=== PATIENT | male | born 1935 | race Caucasian/White ===

== ENCOUNTER → 2016-06-26 | Outpatient (CLI) | payer OTHER ==
[~2016-06-26] MED LIST: ASPCH81 PO; ASPEC325 PO; ASPI325T39 PO; CRS10 PO; DIPH-416 PO; FLUT50SP14 NAE; HYDR-5688 PO; IBUP-1050 PO; SYMIN8045
[2016-06-26 14:21] LABS: BLOOD UREA NITROGEN 21 mg/dl (7-18); BUN/CREATININE RATIO 17.3 (10-20); CALCIUM 8.9 mg/dl (8.5-10.1); CARBON DIOXIDE 23 mmol/L (21-32); CHLORIDE 106 mmol/L (98-107); CHOLESTEROL 159 mg/dl (0-200); GLUCOSE 102 mg/dl (70-99); POTASSIUM 4.3 mmol/L (3.5-5.1); SODIUM 139 mmol/L (136-145)
[2016-06-26 14:26] LABS: CHOLESTEROL/HDL RATIO 2.4; HDL CHOLESTEROL 66 mg/dl; PROSTATE SPECIFIC ANTIGEN < 0.010 ng/ml (0.000-4.000); TRIGLYCERIDES 92 mg/dl (0-150); VERY LOW DENSITY LIPOPROT CALC 18 mg/dl
[2016-06-26 14:31] LABS: ESTIMATED AVERAGE GLUCOSE 120 mg/dl; HA1C FLAG Normal (Normal)
== END | disposition home or self-care (01) ==
LOC: C.LABSPEC 13:34
PROVIDERS: ATTEND Internal Medicine
DX: R73.9 Hyperglycemia, unspecified (principal); E78.5 Hyperlipidemia, unspecified; C61 Malignant neoplasm of prostate

== ENCOUNTER → 2016-07-09 | Outpatient (CLI) | payer OTHER ==
--- NOTE | 2016-07-09 11:06 | DIAGNOSTIC IMAGING REPORT ---
LEFT HIP UNILATERAL 2 VIEWS CLINICAL HISTORY: Left hip pain. COMPARISON STUDY: None. FINDINGS: No fracture or dislocation within the left hip. Mild cartilage space narrowing within the left hip. There are are marginal osteophytes and subchondral sclerosis consistent with degenerative change. The visual pelvic bones are intact. Multiple brachytherapy seeds seen within the prostate gland. IMPRESSION: Mild osteoarthritis within the left hip. No fractures. Electronically signed by: Carson Nam M.D. 07/09/2016 11:04 AM Dictated Date/Time: 07/09/2016 11:01 AM
== END | disposition home or self-care (01) ==
LOC: C.RAD 10:44
PROVIDERS: ATTEND Internal Medicine
DX: M25.552 Pain in left hip (principal)

== ENCOUNTER → 2016-10-02 | Outpatient (CLI) | payer OTHER ==
[~2016-10-02] MED LIST changes: +ASPI81TA28 PO; +FLUT0.15; +ROSU20TA PO
--- NOTE | 2016-10-02 14:52 | DIAGNOSTIC IMAGING REPORT ---
AP PELVIS AND RIGHT HIP 4 VIEWS CLINICAL HISTORY: Persistent right hip pain COMPARISON STUDY: No previous studies for comparison. FINDINGS: Prostate radiation therapy implant seeds are visualized. There are no acute fractures. There are degenerative changes in the lower lumbar spine. There are degenerative changes present within the right hip with prominent subchondral acetabular cysts. IMPRESSION: 1. No acute fractures 2. Degenerative changes within the right hip with prominent subchondral acetabular cysts Electronically signed by: Glenroy Reis M.D. 10/02/2016 2:51 PM Dictated Date/Time: 10/02/2016 2:49 PM
== END | disposition home or self-care (01) ==
LOC: C.RAD 14:17
PROVIDERS: ATTEND Internal Medicine
DX: M25.551 Pain in right hip (principal); M85.68 Other cyst of bone, other site

== ENCOUNTER → 2016-12-26 | Outpatient (CLI) | payer OTHER ==
[~2016-12-26] MED LIST changes: -ASPI81TA28 PO; -FLUT0.15; -ROSU20TA PO
[2016-12-26 13:35] LABS: ALT/SGPT 22 U/L (12-78); AST/SGOT 14 U/L (15-37); BLOOD UREA NITROGEN 22 mg/dl (7-18); BUN/CREATININE RATIO 17.9 (10-20); CALCIUM 8.9 mg/dl (8.5-10.1); CARBON DIOXIDE 24 mmol/L (21-32); CHLORIDE 108 mmol/L (98-107); CHOLESTEROL 155 mg/dl (0-200); GLUCOSE 100 mg/dl (70-99); POTASSIUM 4.3 mmol/L (3.5-5.1); SODIUM 139 mmol/L (136-145); TRIGLYCERIDES 77 mg/dl (0-150); VERY LOW DENSITY LIPOPROT CALC 15 mg/dl
[2016-12-26 13:39] LABS: ALB/GLOB RATIO 1.2 (0.9-2); ALKALINE PHOSPHATASE 54 U/L (45-117); CHOLESTEROL/HDL RATIO 2.6; HDL CHOLESTEROL 60 mg/dl; PROSTATE SPECIFIC ANTIGEN < 0.010 ng/ml (0.000-4.000)
[2016-12-26 13:44] LABS: ESTIMATED AVERAGE GLUCOSE 117 mg/dl; HA1C FLAG Normal (Normal)
== END | disposition home or self-care (01) ==
LOC: C.LABSPEC 12:21
PROVIDERS: ATTEND Internal Medicine
DX: Z00.00 Encounter for general adult medical examination without abnormal findings (principal); R73.9 Hyperglycemia, unspecified; C61 Malignant neoplasm of prostate; E78.5 Hyperlipidemia, unspecified

== ENCOUNTER → 2017-01-06 | Outpatient (CLI) | payer OTHER | END | disposition home or self-care (01) | LOC: C.LABSPEC 15:01 | PROVIDERS: ATTEND Internal Medicine | DX: Z12.11 Encounter for screening for malignant neoplasm of colon (principal) ==

== ENCOUNTER → 2017-01-08 | Outpatient (CLI) | payer OTHER ==
[2017-01-13 18:33] LABS: TESTOSTERONE,TOTAL 258 ng/dL (250-1100)
== END | disposition home or self-care (01) ==
LOC: C.LAB 11:38
PROVIDERS: ATTEND Internal Medicine
DX: N62 Hypertrophy of breast (principal)

== ENCOUNTER → 2017-01-10 | Outpatient (CLI) | payer OTHER ==
[~2017-01-10] MED LIST changes: -DIPH-416 PO; -SYMIN8045
--- NOTE | 2017-01-10 12:46 | MAMMOGRAPHY REPORT ---
MALE BILATERAL DIGITAL DIAGNOSTIC MAMMOGRAM WITH CAD AND TARGETED RIGHT ULTRASOUND: 01/10/2017 CLINICAL HISTORY: The patient reports intermittent pain and swelling in the right nipple region for a pproximately 6 months. The tenderness is noted only on palpation. He denies any left breast symptom s. TECHNIQUE: Current study was also evaluated with a Computer Aided Detection (CAD) system. Bilateral CC and MLO views were obtained. COMPARISON: No prior exams were available for comparison. BREAST COMPOSITION: The tissue of both breasts is predominantly fatty. FINDINGS: A square marker [place] the site of pain and swelling in the right subareolar region. There is flame-shaped fibroglandular tissue seen in bilateral subareolar regions, right breast greater than left, consistent with gynecomastia. No suspicious masses, calcifications, or areas of architectural distortion are noted in either breast. Targeted ultrasound was performed of the area of pain and swelling pointed out by the patient in the right subareolar region. There is mixed echogenicity fibroglandular tissue within the right subareol ar breast, consistent with gynecomastia. No suspicious mass or other suspicious sonographic abnormal ity is evident. IMPRESSION: ACR BI-RADS CATEGORY 2: BENIGN, TARGETED ULTRASOUND ACR BI-RADS CATEGORY 2: BENIGN Benign gynecomastia bilaterally, right breast greater than left. The gynecomastia corresponds with t he area of right breast pain and swelling described by the patient. There is no mammographic or targ eted sonographic evidence of malignancy. Recommend clinical follow-up as to a possible underlying cau se. The patient has been verbally notified of the results. Approximately 10% of breast cancers are not detected with mammography. A negative mammographic report should not delay biopsy if a clinically suggestive mass is present. Cristal John M.D. /:01/10/2017 09:24:01 Coloring Room Worker: Robina West, [facility] letter sent: Normal 1/2 BI-RADS Code: ACR BI-RADS Category 2: Benign Ultrasound BI-RADS: ACR BI-RADS Category 2: Benign
== END | disposition home or self-care (01) ==
LOC: C.MAMM 08:41
PROVIDERS: ATTEND Internal Medicine
DX: N62 Hypertrophy of breast (principal)

== ENCOUNTER 2017-02-15 04:59 | Inpatient (IN) | payer OTHER ==
[2017-01-08 11:45] VITALS: BMI 29.0
--- NOTE | 2017-01-08 12:22 | PAT Medication Instructions ---
Service Date Jan 08, 2017. Current Home Medication List Aspirin (Aspirin Tab-Chewable *), 81 MG PO QPM Aspirin (Aspirin Ec), 325 MG PO PRN Fluticasone Propionate (Flonase Nasal [place]), 1 SPRAYS JACY QPM Ibuprofen (Advil), 200 MG PO PRN Rosuvastatin Calcium (Crestor *), 20 MG PO HS Medication Instructions For Your Scheduled Surgery - Hold the following medications 7 days prior to surgery per surgeon's instructions: Aspirin (Aspirin Ec), 325 MG PO PRN Ibuprofen (Advil), 200 MG PO PRN - Take the following medications the morning of surgery with a sip of water OTHERWISE NOTHING TO EAT OR DRINK AFTER MIDNIGHT: Tylenol (may take if needed up to 4 hours prior to surgery) - Take the following medications as scheduled the night before surgery: Rosuvastatin Calcium (Crestor *), 20 MG PO HS Fluticasone Propionate (Flonase Nasal [place]), 1 SPRAYS JACY QPM Aspirin (Aspirin Tab-Chewable *), 81 MG PO QPM Tylenol If you have any questions please call us at [phone] or [phone] or [phone]
[2017-01-08 12:57] LABS: BASO % 0.4 %; BASO ABS # 0.03 K/uL (0-0.2); COMPLETE YES; EOS % 4.9 %; HEMATOCRIT 39.6 % (42-52); IG% 0.1 %; LYMPH % 22.1 %; LYMPH ABS # 1.49 K/uL (1.2-3.4); MEAN CELL VOLUME 97.1 fL (80-100); MEAN CORPUSCULAR HEMOGLOBIN 33.8 pg (25-34); MEAN CORPUSCULAR HGB CONC 34.8 g/dl (32-36); MEAN PLATELET VOLUME 10.4 fL (7.4-10.4); MONO % 9.2 %; NEUT % 63.3 %; PLATELET COUNT 172 K/uL (130-400); RED BLOOD COUNT 4.08 M/uL (4.7-6.1); WHITE BLOOD COUNT 6.75 K/uL (4.8-10.8)
[2017-01-08 13:01] LABS: URINE APPEARANCE CLEAR (CLEAR); URINE BILIRUBIN NEG (NEG); URINE COLOR YELLOW; URINE NITRITE NEG (NEG); URINE SPECIFIC GRAVITY 1.024 (1.000-1.030); UROBILINOGEN NEG (NEG)
[2017-01-08 13:02] LABS: MANUAL MICROSCOPIC REQUIRED? NO; REVIEW REQ? NO
--- NOTE | 2017-01-08 13:04 | DIAGNOSTIC IMAGING REPORT ---
CHEST 2 VIEWS ROUTINE CLINICAL HISTORY: Right upper chest COMPARISON STUDY: 02/15/2010 FINDINGS: The heart is normal in size. There are prominent coronary phrenic angle fat pads. There is no failure. There is no lobar consolidation. There is minor chronic interstitial thickening. There are no significant pleural effusions. IMPRESSION: No active disease in the chest. Electronically signed by: Glenroy Reis M.D. 01/08/2017 1:03 PM Dictated Date/Time: 01/08/2017 1:02 PM
[2017-01-08 13:10] LABS: PARTIAL THROMBOPLASTIN RATIO 1.1; PROTHROMBIN TIME (PATIENT) 10.4 SECONDS (9.0-12.0)
[2017-01-08 13:11] LABS: BUN/CREATININE RATIO 21.3 (10-20); CALCIUM 9.4 mg/dl (8.5-10.1); CREATININE 1.2 mg/dl (0.60-1.40); POTASSIUM 4.1 mmol/L (3.5-5.1)
--- NOTE | 2017-02-14 17:21 | HISTORY & PHYSICAL EXAMINATION ---
DATE OF ADMISSION: 02/15/2017 HISTORY AND PHYSICAL ADMISSION NOTE CHIEF COMPLAINT: Primary osteoarthritis of the right hip. HISTORY OF PRESENT ILLNESS: Edi is a pleasant 81-year-old male who has been having a 6-month history of increasing right hip pain. His pain has been increasing and now it is to the point where he is unable to sleep at night and do activities he enjoys. X-rays and clinical examination were diagnostic for primary osteoarthritis of the right hip. After failing conservative treatment, he elected to undergo a right total hip arthroplasty. PAST MEDICAL HISTORY: Hyperlipidemia, and prostate cancer. PAST SURGICAL HISTORY: Significant for left total knee arthroplasty by Dr. Ambrose. ALLERGIES: None. MEDICATIONS: Crestor, aspirin, and Flonase. FAMILY HISTORY: Noncontributory. SOCIAL HISTORY: He is , has 1-2 drinks a day. Remains active. REVIEW OF SYSTEMS: He complains of right hip pain. All other pertinent review of systems is negative. PHYSICAL EXAMINATION: GENERAL: He is awake, alert and oriented x3. He is in no apparent distress. He is very pleasant. HEENT: Pupils are equal, round and reactive to light. Extraocular motion intact. Oral mucosa is pink and moist. HEART: Regular rate per radial pulse. LUNGS: [place] symmetrically bilaterally with no audible breath sounds. ABDOMEN: Soft, nontender, nondistended. MUSCULOSKELETAL: On physical examination of the right hip. He walks with a slightly antalgic gait. His leg lengths are equal. He can flex it to about 90 degrees, but significant groin pain and buttock pain with forced internal and external rotation of his hip. His hip is very tight. IMAGING: X-rays of the right hip from the hospital do show advanced osteoarthritis with slight coxa vara. There is complete loss of joint space, osteophyte formation and subchondral sclerosis. IMPRESSION: Primary osteoarthritis of the right hip. PLAN: We will proceed with the right total hip arthroplasty through an anterior approach. Postoperatively, he will be placed on aspirin for DVT prophylaxis and kept in the hospital for postoperative medical management.
[2017-02-15] VITALS (10 sets, daily range): BP systolic 133–173; BP diastolic 72–97; PULSE 58–77; TEMP 36.3–36.8; O2SAT 96–100; Ht 180.3 cm; Wt 95.8 kg
[~2017-02-15] VITALS: Ht 180.3 cm; Wt 95.8 kg
[~2017-02-15 04:59] MED LIST changes: -ASPEC325 PO; -HYDR-5688 PO
[2017-02-15] MEDS ORDERED: ACETAMINOPHEN 500 MG TAB PO SCH (06:00)
[2017-02-15] MEDS ORDERED: ROPIVACAINE 5MG/ML 30 ML 150 MG, BUPIVACAINE/EPINEPHR 0.5% MPF 30 ML, KETOROLAC TROMETH... INFIL SCH ×7 (06:00)
[2017-02-15] MEDS ORDERED: FAMOTIDINE 20 MG TAB PO SCH (06:00)
[2017-02-15] MEDS ORDERED: LACTATED RINGER'S 1000ML 500 ML IV ONE (06:00)
[2017-02-15] MEDS ORDERED: LACTATED RINGER'S 1000ML IV SCH (06:00)
[2017-02-15] MEDS ORDERED: LACTATED RINGER'S 1000ML 1,000 ML IV SCH (06:00)
[2017-02-15] MEDS ORDERED: GABAPENTIN 300 MG CAP PO SCH (06:00)
[2017-02-15] MEDS ORDERED: CEFAZOLIN 2000 MG/60 ML D5W 60 ML IV SCH (06:00)
[2017-02-15] MEDS: TRANEXAMIC ACID INJ 1,000 MG in SODIUM CHLORIDE 0.9% 100ML 100 ML IV SCH ×2 (06:09→10:55)
[2017-02-15] MEDS ORDERED: BUPIVACAINE 0.5 % 5 MG/1 ML PF 10ML VIAL ONE (06:22)
[2017-02-15] MEDS ORDERED: FENTANYL CITRATE INJ 50 MCG/1 ML 2 ML VIAL ONE (06:33)
[2017-02-15] MEDS ORDERED: MIDAZOLAM HCL 1 MG/ML 2ML VIAL ONE (06:33)
[2017-02-15] MEDS ORDERED: BACITRACIN 50000 UNIT VIAL ONE ×2 (06:43→06:53)
[2017-02-15] MEDS ORDERED: ORTHO JOINT ANESTHETIC ONE (06:43)
--- NOTE | 2017-02-15 06:58 | History & Physical Bridge Note ---
H&P Re-Evaluation Bridge Note: I have examined the patient, reviewed the History & Physical and in the interval since the performance of the History & Physical I have noted the following changes of clinical significance: No changes noted
[2017-02-15] MEDS ORDERED: EpHEDrine SULFATE 50MG/5ML SYR ONE (07:36)
[2017-02-15] MEDS ORDERED: LIDOCAINE HCL 2% 2 ML VIAL (20MG/ML) ONE (07:36)
[2017-02-15] MEDS ORDERED: PHENYLEPHRINE 100MCG/ML 5ML SYR ONE (07:36)
[2017-02-15] MEDS ORDERED: PROPOFOL IV EMULSION 10 MG/ML 20 ML VIAL IV ONE ×3 (07:36→09:10)
--- NOTE | 2017-02-15 09:12 | [facility] Post Operative Brief Note ---
Immediate Operative Summary Operative Date Feb 15, 2017. Pre-Operative Diagnosis Right Hip, Degenerative Joint Disease Post-Operative Diagnosis Same as preoperative Procedure(s) Performed Right Anterior Total Hip Arthroplasty, Uncemented Surgeon Dr. Obi Hoyos Executive Business Coach Surgeon(s) Lex Macario PA-C Estimated Blood Loss 250ML Findings as above Specimens A.) Right Femoral Head Complication(s) None Disposition Recovery Room / PACU
[2017-02-15] MEDS ORDERED: BISACODYL 10 MG SUPP PR PRN (09:15)
[2017-02-15] MEDS ORDERED: MoRPHine SULFATE 2 MG/ML CARP IV PRN (09:15)
[2017-02-15] MEDS ORDERED: SILVER SULFADIAZINE 1% CR 50 GM JAR EXT PRN (09:15)
[2017-02-15] MEDS ORDERED: MAGNESIUM HYDROXIDE SUSP 30 ML UDC PO PRN (09:15)
[2017-02-15] MEDS ORDERED: METOCLOPRAMIDE HCL INJ 5 MG/ML 2 ML VIAL IV PRN (09:15)
[2017-02-15] MEDS ORDERED: SOD PHOSPHATE/SOD BIPHOSPHATE ENEMA 132 ML BTL PR PRN (09:15)
[2017-02-15] MEDS ORDERED: ONDANSETRON INJ 2 MG/ML 2 ML VIAL IV PRN (09:15)
--- NOTE | 2017-02-15 09:38 | DIAGNOSTIC IMAGING REPORT ---
INTRAOPERATIVE FLUOROSCOPIC IMAGES OF THE RIGHT HIP CLINICAL HISTORY: Arthroplasty. COMPARISON STUDY: Pelvis and right hip radiograph October 02, 2016. Fluoroscopy time: 51.6 seconds. FINDINGS: 3 intraoperative fluoroscopic images demonstrate expected findings during placement of a total right hip arthroplasty. Acetabular screw is in place. Alignment is anatomic. Brachytherapy seeds within the prostate are incidentally noted. IMPRESSION: Expected intraoperative findings during total right hip arthroplasty. Electronically signed by: Cristi Biggs M.D. 02/15/2017 9:37 AM Dictated Date/Time: 02/15/2017 9:36 AM
--- NOTE | 2017-02-15 09:39 | OPERATIVE REPORT ---
DATE OF OPERATION: 02/15/2017 PREOPERATIVE DIAGNOSIS: Primary osteoarthritis of the right hip. POSTOPERATIVE DIAGNOSIS: Same. PROCEDURE: Right total hip arthroplasty. SURGEON: Dr. Obi Hoyos. COLLAR BASTER JUMPBASTING: Lex Macario PA-C, whose assistance was necessary for positioning of the leg and helping with retraction and closure. ANESTHESIA: Spinal with sedation. COMPLICATIONS: None. CONDITION: Stable to PACU. IMPLANTS USED: I used a [employer]omet Taperloc total hip arthroplasty system with a size 16 standard offset Taperloc stem, a size 54 G7 cup, a G7 E1 neutral liner and a size 40 x -3 ceramic head. INDICATIONS: Edi is a pleasant 81-year-old male who presented to my office with complaints of chronic right hip pain. X-rays and clinical examination were diagnostic for primary osteoarthritis of the right hip. After failing extensive conservative treatment, he elected to undergo a right total hip arthroplasty. DESCRIPTION OF PROCEDURE: On 02/15/2017, he arrived at [facility] for the above procedure. He was seen in the preoperative holding area and the operative extremity was identified and signed. He was given with antibiotic and a spinal anesthetic. He was taken back to the operating room, laid on the table in supine position and given basic sedation. The right leg was brought out to a Purist leg positioner. The right hip was then prepped and draped in sterile fashion. Time-out was done and the patient and operative extremity was properly identified. An anterior approach was used. Dissection was taken down through the tensor fascia and the tensor muscle was retracted laterally and the rectus was retracted medially. The circumflex vessels were ligated. The capsule was then incised for later repair. The femoral head was exposed. The femoral neck was then resected and the head was removed. The acetabulum was then exposed. Sequential reaming under fluoroscopy up to a size 53 reamer was done. A size 54 G7 cup was then impacted into place. I was able to get a good pressfit. A single 25-mm screw was placed. A neutral E1 poly liner was then snapped into place. The proximal femur was then exposed. Sequential broaching up to a size 16 broach was done. A standard femoral head was originally trialed, but the leg length was a little long, so I decided to go with a -3 femoral head. I was happy where the leg length was compared to the preoperative imaging. The hip was then dislocated. The trials were removed. The final size 16 Taperloc standard offset stem was then impacted into place. A ceramic 40-mm head with a -3 neck was then impacted on the trunnion and the hip was reduced. Final x-rays showed anatomic alignment compared to the preoperative films. The hip was then irrigated with 3 liters of normal saline solution with bacitracin. Surrounding soft tissues were injected with 100 mL of an orthopedic pain control cocktail. The capsule was then repaired with #1 Vicryl sutures. A drain was placed. Fascia was repaired with #2 PDS suture. Skin was closed with 2-0 Vicryl, 3-0 V-Loc suture and can. He was then placed in a soft dressing and taken to the postanesthesia care unit in stable condition. He tolerated the procedure well. I attest to the content of the Intraoperative Record and any orders documented therein. Any exception s are noted below.
--- NOTE | 2017-02-15 10:11 | DIAGNOSTIC IMAGING REPORT ---
RIGHT PELVIS/UNILATERAL HIP 1 VIEW HISTORY: 81 years-old Male IN PACU - A/P PELVIS and LATERAL HIP INCLUDING ALL OF IMPLANT Right status post right hip arthroplasty. History of right hip osteoarthritis. COMPARISON: Right hip radiographs 02/15/2017 TECHNIQUE: AP view of the pelvis with crosstable lateral view of the right hip FINDINGS: Brachy therapy seeds within the prostate are seen. Moderate osteoarthritis is seen about the left hip. There are expected postsurgical changes of recent right hip arthroplasty without complication. There is satisfactory alignment. Skin can and surgical drain are in place with expected postsurgical swelling and deep tissue air. Peripheral vascular calcifications are noted. IMPRESSION: 1. Status post total right hip arthroplasty without complication. 2. Moderate left hip osteoarthritis. The above report was generated using voice recognition software. It may contain grammatical, syntax or spelling errors. Electronically signed by: Esdras Capone M.D. 02/15/2017 10:10 AM Dictated Date/Time: 02/15/2017 10:08 AM
[2017-02-15] MEDS: SODIUM CHLORIDE 0.9% 1000ML 1,000 ML IV SCH ×2 (10:56→19:13)
--- NOTE | 2017-02-15 12:33 | Anesthesiology Progress Note ---
Anesthesia Post Op Note Date & Time Feb 15, 2017 at 12:33 Vital Signs Pain Intensity: 0.0 Vital Signs Past 12 Hours Date Time Temp Pulse Resp B/P (MAP) Pulse Ox O2 Delivery O2 Flow Rate FiO2 02/15/17 11:39 36.3 58 18 167/84 (111) 99 Nasal Cannula 2.0 02/15/17 11:13 63 16 133/77 (95) 99 2.0 02/15/17 10:40 36.3 62 20 135/72 (93) 99 Nasal Cannula 2.0 02/15/17 10:40 99 Nasal Cannula 2.0 02/15/17 10:40 99 Nasal Cannula 2.0 02/15/17 10:25 36.3 61 16 130/73 99 Nasal Cannula 2 02/15/17 10:23 58 15 02/15/17 10:23 58 15 99 02/15/17 10:20 112/77 02/15/17 10:18 64 18 02/15/17 10:18 63 18 99 02/15/17 10:15 122/77 02/15/17 10:13 63 13 02/15/17 10:13 62 13 98 02/15/17 10:10 133/75 02/15/17 10:08 58 12 02/15/17 10:08 58 12 99 02/15/17 10:06 133/75 02/15/17 10:03 72 18 100 02/15/17 10:03 72 18 02/15/17 10:02 129/83 02/15/17 09:58 67 16 100 02/15/17 09:58 63 14 99 02/15/17 09:56 107/63 02/15/17 09:53 61 14 100 02/15/17 09:53 62 14 02/15/17 09:51 110/79 02/15/17 09:48 65 15 99 02/15/17 09:48 66 15 02/15/17 09:46 129/69 02/15/17 09:43 63 17 100 02/15/17 09:43 64 17 02/15/17 09:41 119/67 02/15/17 09:38 60 18 02/15/17 09:38 59 18 100 02/15/17 09:36 127/65 02/15/17 09:33 69 24 02/15/17 09:33 68 24 110/65 100 02/15/17 09:33 36.4 16 110/65 100 Mask 10 02/15/17 05:27 36.7 73 18 172/90 98 Room Air Notes Mental Status: alert / awake / arousable, participated in evaluation Pt Amnestic to Procedure: Yes Nausea / Vomiting: adequately controlled Pain: adequately controlled Airway Patency, RR, SpO2: stable & adequate BP & HR: stable & adequate Hydration State: stable & adequate Anesthetic Complications: no major complications apparent
[2017-02-15] MEDS: KETOROLAC TROMETHAMINE 15 MG/ML VIAL IV. SCH ×3 (12:49→23:38)
[2017-02-15] MEDS: CEFAZOLIN IV 2,000 MG in DEXTROSE 5% 50ML 50 ML IV SCH ×2 (15:36→22:25)
[2017-02-15] MEDS: ASPIRIN 325 MG ECTAB PO SCH (20:36)
[2017-02-15] MEDS: DOCUSATE SODIUM 100 MG CAP PO SCH (20:36)
[2017-02-15] MEDS: FLUTICASONE PROPIONATE NA SPR 16 GM BTL NAE SCH (20:36)
[2017-02-15] MEDS: SENNA 8.6 MG TAB PO SCH (20:36)
[2017-02-15] MEDS: ROSUVASTATIN CALCIUM 20 MG TAB PO SCH (20:36)
[2017-02-15] MEDS ORDERED: NURSING VERBAL MED ORDER ONE (23:15)
[2017-02-15] MEDS ORDERED: AMLODIPINE BESYLATE 5 MG TAB PO STA (23:15)
[2017-02-16] VITALS (7 sets, daily range): BP systolic 123–149; BP diastolic 65–77; PULSE 69–90; TEMP 36.6–37.6; O2SAT 97–98
[2017-02-16] MEDS: SODIUM CHLORIDE 0.9% 1000ML 1,000 ML IV SCH (05:43)
[2017-02-16] MEDS: KETOROLAC TROMETHAMINE 15 MG/ML VIAL IV. SCH ×4 (05:44→23:10)
[2017-02-16 06:01] LABS: BASO % 0.1 %; BASO ABS # 0.01 K/uL (0-0.2); COMPLETE YES; EOS % 2.6 %; HEMATOCRIT 31.7 % (42-52); IG% 0.3 %; LYMPH % 16.3 %; LYMPH ABS # 1.27 K/uL (1.2-3.4); MEAN CELL VOLUME 95.8 fL (80-100); MEAN CORPUSCULAR HEMOGLOBIN 33.5 pg (25-34); MONO % 10.2 %; NEUT % 70.5 %; PLATELET COUNT 147 K/uL (130-400); RED BLOOD COUNT 3.31 M/uL (4.7-6.1); WHITE BLOOD COUNT 7.78 K/uL (4.8-10.8)
[2017-02-16 06:37] LABS: BUN/CREATININE RATIO 12.8 (10-20); CALCIUM 8.4 mg/dl (8.5-10.1); POTASSIUM 3.8 mmol/L (3.5-5.1)
[2017-02-16] MEDS: MULTIVITAMIN TAB PO SCH (09:06)
[2017-02-16] MEDS: PANTOprazole SOD 40 MG TAB PO SCH (09:06)
[2017-02-16] MEDS: DOCUSATE SODIUM 100 MG CAP PO SCH ×2 (09:06→20:40)
[2017-02-16] MEDS: ASPIRIN 325 MG ECTAB PO SCH ×2 (09:06→20:41)
--- NOTE | 2017-02-16 09:07 | PROGRESS NOTE ---
DATE: 02/16/2017 DATE: 02/16/2017 CHIEF COMPLAINT: Status post right total hip arthroplasty postop day #1. PROGRESS: Edi was seen and examined at bedside today. Overall, he is doing very well. He has a little soreness in his hip but it is not too bad. He has been urinating a lot so I am going to discontinue his IV fluids. He has no other complaints. PHYSICAL EXAMINATION: RIGHT HIP: The dressing is clean and dry and the drain is to suction. He is neurovascularly intact. His leg lengths are essentially equal. LABORATORY DATA: He has an H&H today of 11.1 and 31.7. His glucose is 93. His vital signs are all stable on room air. He is voiding on his own. X-rays postoperatively of the right hip show the prosthesis to be in anatomic alignment without any evidence of fracture, dislocation or loosening. IMPRESSION: Status post right total hip arthroplasty postop day #1. PLAN: At this point, he is doing very well. He will be seen by physical therapy today for ambulation. He is on aspirin 325 mg twice a day for DVT prophylaxis. Tomorrow morning the nursing staff can change the dressing, pull the drain and will likely discharge him to home.
[2017-02-16] MEDS: HYDROCODONE/ACETAMOPHEN 5/325MG TAB PO PRN (11:07)
[2017-02-16] MEDS: FLUTICASONE PROPIONATE NA SPR 16 GM BTL NAE SCH (20:39)
[2017-02-16] MEDS: ROSUVASTATIN CALCIUM 20 MG TAB PO SCH (20:40)
[2017-02-16] MEDS: SENNA 8.6 MG TAB PO SCH (20:40)
--- NOTE | 2017-02-16 20:43 | Medical Consult ---
Consultation Note Date of Service Feb 16, 2017. Consultation Note 81-year-old male admitted by Dr. Obi Hoyos. He underwent a total right hip arthroplasty. The procedure was well tolerated. Past night his nurse called me about his elevated blood pressure. It was in the 160s to 170s systolic. Patient does not have any history of arterial hypertension. His medical problems include hypercholesterolemia, history of prostate cancer, osteoarthritis. During the night I did give him one dose of Norvasc 5 mg orally. His blood pressure normalized. Reviewing his blood pressure readings his blood pressure has remained normal throughout the day. As noted he does not have any history of arterial hypertension and hasnot required any treatment in the past. At this time I do not see any indication to start him on any antihypertensive medication. Will monitor his blood pressure.
[2017-02-17] MEDS: KETOROLAC TROMETHAMINE 15 MG/ML VIAL IV. SCH (05:39)
[2017-02-17 05:54] VITALS: BP 139/74; PULSE 81; TEMP 37; O2SAT 97
[2017-02-17] MEDS: PANTOprazole SOD 40 MG TAB PO SCH (07:34)
[2017-02-17] MEDS: ASPIRIN 325 MG ECTAB PO SCH (07:34)
[2017-02-17] MEDS: DOCUSATE SODIUM 100 MG CAP PO SCH (07:34)
[2017-02-17] MEDS: MULTIVITAMIN TAB PO SCH (07:34)
[2017-02-17] MEDS: HYDROCODONE/ACETAMOPHEN 5/325MG TAB PO PRN (07:38)
[2017-02-17] MEDS ORDERED: ASPEC325 PO (09:44)
[2017-02-17] MEDS ORDERED: HYDR-5688 PO (09:44)
--- NOTE | 2017-02-17 09:45 | Discharge Instructions ---
Discharge Instructions Date of Service Feb 17, 2017. Admission Reason for Admission: Right Hip Degenerative Joint Disease Discharge Discharge Diagnosis / Problem: Total Hip Discharge Goals Goal(s): Decrease discomfort, Improve function Activity Recommendations Activity Limitations: as noted below . Instructions / Follow-Up Instructions / Follow-Up Activity and Therapy Recommendations: * If you are using [facility] then Physical Therapy will be provided until they feel you are ready to start Outpatient Physical Therapy. If you are not using a Home Health agency then Outpatient Physical Therapy should start about 3-5 days from your day of surgery. Therapy will last about 3-6 weeks * You were shown a series of exercises in the hospital. Do these exercises three times each day including the exercises you were shown in physical therapy. * Get up and walk several times each day.~ For the first four weeks, try not to stand or walk for more than one hour at a time. If you do stand or walk for more than one hour, you will not hurt anything, but your leg will likely swell.~ ~ * As you feel comfortable, you may change from the walker or crutches to a cane and~then to independent walking. Medications: * Narcotic You will likely be sent home from the hospital with a prescription for the narcotic pain medication that worked best throughout your stay. * Aspirin Most patients will be required to take Aspirin 325mg twice a day for 6 weeks after surgery. This is obtained [id number] and a prescription is not necessary. * Other medications may be prescribed for specific circumstances. If you have any questions, please call the office at . * Resume previous home medications unless otherwise instructed TEDs/Elastic Stockings: The white elastic stockings help limit swelling and prevent blood clots from forming in your legs. The more you wear them, the more they work. Wear them for six weeks. Showering: You may shower 5 days from the day of surgery. Let the soapy shower water run over the can. Do not scrub or soak the incision. Things To Watch For: * Drainage from the incision site that occurs more than one week after your surgery. * Increased redness at the incision site. * Fever above 102 degrees Fahrenheit. * Unusual chest pain or shortness of breath. * Call [facility] at with any of the above problems Follow-Up Visit: Follow-up with Dr. Hoyos 2-3 weeks after your day of surgery. An appointment was probably scheduled when you signed-up for surgery in the office. If you have any questions call Office Instructions: More detailed instructions as well as Frequently Asked Questions were provided in a folder by our office when you signed-up for surgery. Please review these instructions when you get home. If you have any further questions or concerns, please feel free to call the office at [phone] Current Hospital Diet Patient's current hospital diet: Regular Diet Discharge Diet Recommended Diet: Regular Diet Procedures Procedures Performed: Right Anterior Total Hip Arthroplasty, Uncemented Pending Studies Studies pending at discharge: no Laboratory Results Hemoglobin A1c Test 12/26/16 08:45 Range/Units Estimated Average Glucose 117 mg/dl Hemoglobin A1c 5.7 H 4.5-5.6 % Lipid Panel Test 12/26/16 08:45 Range/Units Triglycerides Level 77 0-150 mg/dl Cholesterol Level 155 0-200 mg/dl HDL Cholesterol 60 mg/dl LDL Cholesterol Direct 80 mg/dl Cholesterol/HDL Ratio 2.6 LDL Cholesterol, Calculated mg/dl Medical Emergencies . Who to Call and When: Medical Emergencies: If at any time you feel your situation is an emergency, please call 911 immediately. . Non-Emergent Contact Non-Emergency issues call your: Surgeon Call Non-Emergent contact if: wound has increased drainage, wound has increased redness . "Provider Documentation" section prepared by Obi Hoyos. . VTE Core Measure Inpt VTE Proph given/why not?: Other Anticoagulation (Aspirin 325 twice a day for 6 weeks)
[2017-02-17 10:01] VITALS: BP 139/74; PULSE 81; TEMP 37; O2SAT 97
--- NOTE | 2017-02-17 21:48 | PROGRESS NOTE ---
DATE: 02/17/2017 CHIEF COMPLAINT: Status post right total hip arthroplasty postop day #2. PROGRESS: Edi was seen and examined at bedside. Overall, he is doing very well. He has been up and ambulating well with physical therapy. His pain is controlled. He has no complaints. PHYSICAL EXAMINATION: RIGHT HIP: The incision is clean and dry and the drain has been pulled. He is neurovascularly intact. His leg lengths are equal. IMPRESSION: Status post right total hip arthroplasty postop day #2. PLAN: At this point, he is doing very well. His vital signs are stable. He is pretty stable with physical therapy and his pain is controlled. We will discharge him to home later today with [facility].
--- NOTE | 2017-02-17 22:03 | DISCHARGE SUMMARY ---
DISCHARGE DIAGNOSIS: Primary osteoarthritis of the right hip. PROCEDURE: Right total hip arthroplasty on 02/15/[address] Obi Hoyos. DISCHARGE INSTRUCTIONS: 1. Aspirin 325 mg twice a day for 6 weeks. 2. Agate 5/325 one or two every 6 hours as needed for pain. 3. Flonase 1 spray at night. 4. Advil as needed for pain. 5. Crestor 20 mg at night. 6. Daily dry dressing changes. 7. Follow up with Dr. Hoyos in 2 weeks. 8. Call the office of Dr. Hoyos with any questions or concerns. HOSPITAL COURSE: Edi is a pleasant 81-year-old male who presented to my office with chronic right hip pain. X-rays and clinical examination were diagnostic for primary osteoarthritis of the right hip. After failing conservative treatment, he elected to undergo a right total hip arthroplasty. On 02/15/2017, he arrived at [facility] and underwent a right hip replacement without complications. He had a spinal anesthetic. Postoperatively, he was started on aspirin for DVT prophylaxis and discharged to general orthopedic floor. On postoperative day #1, his H&H was stable at 11.1 and 31.7. He was up and ambulating well with physical therapy and his pain was well controlled. On postop day #2, the nurses changed the dressing and pulled the drain, and he continued to work well with physical therapy. He was subsequently discharged to home with [facility] and the above instructions. SRIKANTH
== END 2017-02-17 11:05 | disposition home health service (06) | DRG 470 ==
LOC: C.ACU 04:59 → C.3E 06:30 → ENRESERV 10:08
PROVIDERS: ADMIT Orthopaedic Surgery; ATTEND Orthopaedic Surgery
PROC: 0SR904A Replacement of Right Hip Joint with Ceramic on Polyethylene Synthetic Substitute, Uncemented, Open Approach (ICD-10-PCS; principal; 2017-02-15 07:00)
DX: M16.11 Unilateral primary osteoarthritis, right hip (principal); E78.5 Hyperlipidemia, unspecified; R03.0 Elevated blood-pressure reading, without diagnosis of hypertension; Z85.46 Personal history of malignant neoplasm of prostate; Z72.89 Other problems related to lifestyle; Z79.82 Long term (current) use of aspirin; Z79.899 Other long term (current) drug therapy; Z96.652 Presence of left artificial knee joint

== ENCOUNTER → 2017-04-23 | Outpatient (CLI) | payer OTHER ==
[~2017-04-23] MED LIST changes: -ASPCH81 PO; -ASPI325T39 PO; +ASPI81TA28 PO; -CRS10 PO; +FLUT0.15; -FLUT50SP14 NAE; -IBUP-1050 PO; +ROSU20TA PO
[2017-04-23 13:14] LABS: BASO % 0.3 %; BASO ABS # 0.02 K/uL (0-0.2); COMPLETE YES; EOS % 2.9 %; HEMATOCRIT 38.7 % (42-52); IG% 0.3 %; LYMPH % 23.6 %; LYMPH ABS # 1.54 K/uL (1.2-3.4); MEAN CELL VOLUME 97.7 fL (80-100); MEAN CORPUSCULAR HEMOGLOBIN 33.1 pg (25-34); MEAN CORPUSCULAR HGB CONC 33.9 g/dl (32-36); MEAN PLATELET VOLUME 10.5 fL (7.4-10.4); MONO % 8.3 %; NEUT % 64.6 %; PLATELET COUNT 174 K/uL (130-400); RED BLOOD COUNT 3.96 M/uL (4.7-6.1); WHITE BLOOD COUNT 6.52 K/uL (4.8-10.8)
[2017-04-23 13:21] LABS: PARTIAL THROMBOPLASTIN RATIO 1.1; PROTHROMBIN TIME (PATIENT) 10.2 SECONDS (9.0-12.0)
[2017-04-23 13:28] LABS: URINE APPEARANCE CLEAR (CLEAR); URINE BILIRUBIN NEG (NEG); URINE COLOR YELLOW; URINE NITRITE NEG (NEG); URINE SPECIFIC GRAVITY 1.023 (1.000-1.030); UROBILINOGEN NEG (NEG)
[2017-04-23 13:33] LABS: MANUAL MICROSCOPIC REQUIRED? NO; REVIEW REQ? NO
[2017-04-23 13:39] LABS: BLOOD UREA NITROGEN 22 mg/dl (7-18); BUN/CREATININE RATIO 21.7 (10-20); CALCIUM 8.9 mg/dl (8.5-10.1); CARBON DIOXIDE 25 mmol/L (21-32); CHLORIDE 107 mmol/L (98-107); CREATININE 1.02 mg/dl (0.60-1.40); GLUCOSE 90 mg/dl (70-99); POTASSIUM 4.4 mmol/L (3.5-5.1); SODIUM 139 mmol/L (136-145)
== END | disposition home or self-care (01) ==
LOC: C.LABBC 12:06
PROVIDERS: ATTEND Orthopaedic Surgery
DX: Z01.812 Encounter for preprocedural laboratory examination (principal); M16.12 Unilateral primary osteoarthritis, left hip

== ENCOUNTER 2017-05-17 07:19 | Inpatient (IN) | payer OTHER ==
[2017-04-16 11:21] VITALS: BMI 29.0
--- NOTE | 2017-05-16 09:48 | HISTORY & PHYSICAL EXAMINATION ---
DATE OF ADMISSION: 05/17/2017 CHIEF COMPLAINT: Primary osteoarthritis of the left hip. HISTORY OF PRESENT ILLNESS: Edi is a pleasant 81-year-old male who underwent a right total hip arthroplasty 3 months ago. He has done very well with that. Unfortunately, he is having similar pain in his left hip. He is having difficulty sleeping at night and doing activities he enjoys. X-rays and clinical examination were diagnostic for primary osteoarthritis of the left hip and after failing conservative treatment, he has elected to undergo a left total hip arthroplasty. PAST MEDICAL HISTORY: Significant for hyperlipidemia and prostate cancer. PAST SURGICAL HISTORY: Significant for a left total knee arthroplasty by Dr. Ambrose, a right total hip arthroplasty by Dr. Hoyos in February 2017. ALLERGIES: None. MEDICATIONS: Include Crestor, aspirin and Flonase. FAMILY HISTORY: Noncontributory. SOCIAL HISTORY: He is , has 1-2 drinks a day. Remains active. REVIEW OF SYSTEMS: He complains of left hip pain. All other pertinent review of systems are negative. PHYSICAL EXAMINATION: GENERAL: He is awake, alert and oriented x3. He is in no apparent distress. He is very pleasant. HEENT: Pupils equal, round and reactive to light. Extraocular motion intact. Oral mucosa is pink and moist. HEART: Regular rate per radial pulse. LUNGS: [place] symmetrically bilaterally with no audible breath sounds. ABDOMEN: Soft, nontender, nondistended. MUSCULOSKELETAL: On physical examination of left hip, he walks with a slightly antalgic gait. His leg lengths are essentially equal. He can flex it to about 90 degrees, but significant groin and buttock pain with forced internal and external rotation of his hip. His left hip is tight. IMAGING DATA: X-rays of the left hip do show advanced osteoarthritis. There is complete loss of joint space and osteophyte formation and subchondral sclerosis. IMPRESSION: Primary osteoarthritis of the left hip. PLAN: I will proceed with a left total hip arthroplasty through an anterior approach. Postoperatively, he will be placed on aspirin for DVT prophylaxis and kept in the hospital for postoperative medical management.
[2017-05-17] VITALS (9 sets, daily range): BP systolic 111–162; BP diastolic 54–98; PULSE 63–75; TEMP 36.4–37.1; O2SAT 96–100; Ht 180.3 cm; Wt 95.8 kg
[~2017-05-17] VITALS: Ht 180.3 cm; Wt 95.8 kg
[2017-05-17] MEDS: TRANEXAMIC ACID INJ 1,000 MG in SYRINGE 0 ML IV SCH ×2 (06:30→09:47)
[~2017-05-17 07:19] MED LIST changes: +ACETAMINOPHEN 500 MG TAB PO SCH; +ATROPINE SULFATE 0.1 MG/ML 5ML SYR IV PRN; +BUPIVACAINE 0.5 % 5 MG/1 ML PF 10ML VIAL ONE; +CEFAZOLIN 2000MG IV PUSH 10 ML IV SCH; +EpHEDrine SULFATE INJ 50 MG/ML AMP IV PRN; +FAMOTIDINE 20 MG TAB PO SCH; +GABAPENTIN 300 MG CAP PO SCH; +LACTATED RINGER'S 1000ML 1,000 ML IV SCH; +LACTATED RINGER'S 1000ML 500 ML IV ONE; +LACTATED RINGER'S 1000ML IV SCH; +ONDANSETRON INJ 2 MG/ML 2 ML VIAL IV PRN; +ROPIVACAINE 5MG/ML 30 ML 150 MG, BUPIVACAINE 0.5% MPF INJ 30 ML, EpINEphrine HCL INJ 0.... INFIL SCH
[2017-05-17] MEDS ORDERED: ACET325T96 PO (08:00)
[2017-05-17] MEDS ORDERED: MIDAZOLAM HCL 1 MG/ML 2ML VIAL ONE ×2 (09:28→13:20)
[2017-05-17] MEDS ORDERED: FENTANYL CITRATE INJ 50 MCG/1 ML 2 ML VIAL ONE (09:28)
[2017-05-17] MEDS ORDERED: ORTHO JOINT ANESTHETIC ONE (10:15)
[2017-05-17] MEDS ORDERED: PROPOFOL IV EMULSION 10 MG/ML 20 ML VIAL IV ONE ×2 (10:15→13:41)
[2017-05-17] MEDS ORDERED: BACITRACIN 50000 UNIT VIAL ONE (10:15)
--- NOTE | 2017-05-17 10:18 | History & Physical Bridge Note ---
H&P Re-Evaluation Bridge Note: I have examined the patient, reviewed the History & Physical and in the interval since the performance of the History & Physical I have noted the following changes of clinical significance: with revision wound right hip
--- NOTE | 2017-05-17 12:23 | [facility] Post Operative Brief Note ---
Immediate Operative Summary Operative Date May 17, 2017. Pre-Operative Diagnosis Right Hip Wound; Left Hip Degenerative Joint Disease Post-Operative Diagnosis Same as preop Procedure(s) Performed Right Hip Wound Revision; Left Anterior Total Hip Arthroplasty Uncemented Surgeon Dr. Hoyos Cigar Packer Surgeon(s) Lex Macario PA-C Estimated Blood Loss 200 ml Findings as above Specimens A. Left Femoral Head Complication(s) None Disposition Recovery Room / PACU
[2017-05-17] MEDS ORDERED: ONDANSETRON INJ 2 MG/ML 2 ML VIAL IV PRN (12:30)
[2017-05-17] MEDS ORDERED: ACETAMINOPHEN IV 1,000 MG in EMPTY BAG 0 ML IV SCH (12:30)
[2017-05-17] MEDS ORDERED: METOCLOPRAMIDE HCL INJ 5 MG/ML 2 ML VIAL IV PRN (12:30)
[2017-05-17] MEDS ORDERED: MAGNESIUM HYDROXIDE SUSP 30 ML UDC PO PRN (12:30)
[2017-05-17] MEDS ORDERED: SOD PHOSPHATE/SOD BIPHOSPHATE ENEMA 132 ML BTL PR PRN (12:30)
[2017-05-17] MEDS ORDERED: ACETAMINOPHEN 500 MG TAB PO SCH (12:30)
[2017-05-17] MEDS ORDERED: CEFAZOLIN IV 2,000 MG in DEXTROSE 5% 50ML 50 ML IV SCH (12:30)
[2017-05-17] MEDS ORDERED: HYDROCODONE/ACETAMOPHEN 5/325MG TAB PO PRN (12:30)
[2017-05-17] MEDS ORDERED: BISACODYL 10 MG SUPP PR PRN (12:30)
[2017-05-17] MEDS ORDERED: MoRPHine SULFATE 2 MG/ML CARP IV PRN (12:30)
--- NOTE | 2017-05-17 13:15 | Anesthesiology Progress Note ---
Anesthesia Post Op Note Date & Time May 17, 2017 at 13:15 Vital Signs Pain Intensity: 0 Vital Signs Past 12 Hours Date Time Temp Pulse Resp B/P (MAP) Pulse Ox O2 Delivery O2 Flow Rate FiO2 05/17/17 13:01 118/68 05/17/17 12:59 70 14 05/17/17 12:59 70 14 99 05/17/17 12:56 120/72 05/17/17 12:54 74 18 100 05/17/17 12:54 72 18 05/17/17 12:51 110/79 05/17/17 12:49 76 16 99 05/17/17 12:49 76 16 05/17/17 12:46 156/64 05/17/17 12:45 108/77 05/17/17 12:44 80 20 05/17/17 12:44 36.0 80 16 108/77 99 Oxymask 10 05/17/17 12:44 82 20 100 05/17/17 08:05 36.7 66 18 151/78 97 Room Air Notes Mental Status: alert / awake / arousable, participated in evaluation Pt Amnestic to Procedure: Yes Nausea / Vomiting: adequately controlled Pain: adequately controlled Airway Patency, RR, SpO2: stable & adequate BP & HR: stable & adequate Hydration State: stable & adequate Neuraxial Anesthesia: was administered, sensory block is resolving Anesthetic Complications: no major complications apparent
--- NOTE | 2017-05-17 13:27 | DIAGNOSTIC IMAGING REPORT ---
L PELVIS/UNILATERAL HIP 1 VIEW CLINICAL HISTORY: Degenerative arthritis. Postop study. COMPARISON STUDY: 03/27/2017 FINDINGS: There are postsurgical changes of a total right hip arthroplasty. The findings appear similar to the preceding study. Prostate patient therapy seeds are visualized. There is evidence for a new total left hip arthroplasty. There is no dislocation. The acetabular and femoral components appear well seated. Overlying surgical drains are evident. IMPRESSION: Interval total left hip arthroplasty. No complicating features identified. Electronically signed by: Glenroy Reis M.D. 05/17/2017 1:26 PM Dictated Date/Time: 05/17/2017 1:25 PM
--- NOTE | 2017-05-17 13:48 | DIAGNOSTIC IMAGING REPORT ---
INTRAOPERATIVE LEFT HIP 2 VIEWS CLINICAL HISTORY: Degenerative arthritis. Hip arthroplasty. COMPARISON STUDY: AP pelvis dated 03/27/2017 FINDINGS: 47 seconds of fluoroscopic time was utilized. 2 fluoroscopic spot images are provided for interpretation. Image 1 demonstrates resection of the left femoral head. There is an acetabular cup with a single screw present. Image #2 demonstrates a total left hip arthroplasty. There is no dislocation. IMPRESSION: Intraoperative radiographs during a total left hip arthroplasty. Electronically signed by: Glenroy Reis M.D. 05/17/2017 1:46 PM Dictated Date/Time: 05/17/2017 1:45 PM
--- NOTE | 2017-05-17 14:05 | OPERATIVE REPORT ---
DATE OF OPERATION: 05/17/2017 PREOPERATIVE DIAGNOSIS: Primary osteoarthritis of the left hip, small ulceration proximal incision of the right hip. POSTOPERATIVE DIAGNOSIS: Same. PROCEDURE: Left total hip arthroplasty, revision wound and removal ulceration of the right hip. SURGEON: Dr. Obi Hoyos. STRAW HAT BRIM RAISER OPERATOR: Lex Macario PA-C, whose assistance was necessary for retraction and helping with closure. ANESTHESIA: Spinal. COMPLICATIONS: None. CONDITION: Stable to PACU. IMPLANTS USED: I used a [employer]omet Taperloc total hip arthroplasty system with a size 54 cup, a size 40 E1 E-poly liner, size 15 standard offset Taperloc stem and a 40 mm ceramic head with a +6 neck. INDICATIONS: Edi is a pleasant 81-year-old male who presented to my office with bilateral hip pain. He underwent a right total hip arthroplasty 3 months ago. Unfortunately, he has painful osteoarthritis of his left hip. He has elected to proceed with a left total hip arthroplasty. OPERATION AND FINDINGS: On 05/17/2017 he arrived at [facility] for the above procedure. He was seen in the preoperative holding area and the operative extremity was identified and signed. He was given a preoperative antibiotic and a spinal anesthetic. He was taken back to the operating room, laid on the table in supine position and put under basic sedation. The left hip was brought out to a Purist leg positioner. The left hip was then prepped and draped in sterile fashion. Time-out was done and the patient and operative extremity was properly identified. An anterior approach was used. Dissection was taken down through the fascia and the tensor was retracted laterally and the rectus was retracted medially. The circumflex vessels were ligated. The capsule was then incised and tagged for later repair. The femoral neck was then resected and the head was removed. Time was spent doing a complete circumferential labral release. Sequential reaming up to a size 53 reamer was done. This was done under fluoroscopy to ensure appropriate version. A 54 mm cup was then impacted into place. A single 30 mm screw was placed and a 40 mm E1 poly liner was then snapped into place and the ring lock mechanism was engaged. The proximal femur was then exposed. Sequential broaching up to a size 15 broach was done. A standard offset neck and a standard head were used. The hip was then reduced. I was happy with the overall size of the implants, but he still looked a little bit short. The hip was then dislocated. The final size 15 standard offset Taperloc stem was then impacted into place. A +6 head was trialled and I was much happier with the leg lengths. The final size 40 ceramic head with a +6 neck was then impacted into place. The hip was reduced. Final fluoroscopic images showed anatomic reduction and placement of the hip. The wound was then irrigated with 3 liters of normal saline solution with bacitracin. Surrounding soft tissues were injected with 100 mL orthopedic pain control cocktail. The capsule was then repaired with #1 Vicryl suture and drain was placed. Fascia was closed with #1 PDS. Skin was closed with 2-0 Vicryl, 3-0 V-Loc suture, can and a Prevena VAC dressing. He tolerated the procedure well. After the procedure a small revision was done of a superior aspect of the wound on his right thigh. There was a 1 cm area of ulceration of the proximal aspect of his incision on the right side that was not healing. I used a Betadine prep around the area. Under sterile technique, I ellipsed the ulcerated area and placed two 3-0 nylon sutures to close it up. A simple Tegaderm dressing was placed. He was then taken to the postanesthesia care unit in stable condition. He tolerated the procedure well. I attest to the content of the Intraoperative Record and any orders documented therein. Any exception s are noted below.
[2017-05-17] MEDS: SODIUM CHLORIDE 0.9% 1000ML 1,000 ML IV SCH (16:17)
[2017-05-17] MEDS: KETOROLAC TROMETHAMINE 15 MG/ML VIAL IV. SCH ×2 (16:17→21:49)
--- NOTE | 2017-05-17 16:53 | Discharge Instructions ---
Discharge Instructions Date of Service May 17, 2017. Admission Reason for Admission: Left Hip Degenerative Joint Disease Discharge Discharge Diagnosis / Problem: Left Total Hip Discharge Goals Goal(s): Decrease discomfort, Improve function Activity Recommendations Activity Limitations: as noted below . Instructions / Follow-Up Instructions / Follow-Up Activity and Therapy Recommendations: * If you are using [facility] then Physical Therapy will be provided until they feel you are ready to start Outpatient Physical Therapy. If you are not using a Home Health agency then Outpatient Physical Therapy should start about 3-5 days from your day of surgery. Therapy will last about 3-6 weeks * You were shown a series of exercises in the hospital. Do these exercises three times each day including the exercises you were shown in physical therapy. * Get up and walk several times each day.~ For the first four weeks, try not to stand or walk for more than one hour at a time. If you do stand or walk for more than one hour, you will not hurt anything, but your leg will likely swell.~ ~ * As you feel comfortable, you may change from the walker or crutches to a cane and~then to independent walking. Medications: * Narcotic You will likely be sent home from the hospital with a prescription for the narcotic pain medication that worked best throughout your stay. * Aspirin Most patients will be required to take Aspirin 325mg twice a day for 6 weeks after surgery. This is obtained [id number] and a prescription is not necessary. * Other medications may be prescribed for specific circumstances. If you have any questions, please call the office at . * Resume previous home medications unless otherwise instructed TEDs/Elastic Stockings: The white elastic stockings help limit swelling and prevent blood clots from forming in your legs. The more you wear them, the more they work. Wear them for six weeks. Dressing Care: Take the VAC dressing off if it is still on at 10 days (hopefully it will last 7 -10 days). You may shower after the VAC dressing is off. Let soapy water run over the can and pat it dry. Things To Watch For: * Drainage from the incision site that occurs more than one week after your surgery. * Increased redness at the incision site. * Fever above 102 degrees Fahrenheit. * Unusual chest pain or shortness of breath. * Call [facility] at with any of the above problems Follow-Up Visit: Follow-up with Dr. Hoyos 2-3 weeks after your day of surgery. An appointment was probably scheduled when you signed-up for surgery in the office. If you have any questions call Office Instructions: More detailed instructions as well as Frequently Asked Questions were provided in a folder by our office when you signed-up for surgery. Please review these instructions when you get home. If you have any further questions or concerns, please feel free to call the office at [phone] Current Hospital Diet Patient's current hospital diet: Regular Diet Discharge Diet Recommended Diet: Regular Diet Procedures Procedures Performed: Right Hip Wound Revision; Left Anterior Total Hip Arthroplasty Uncemented Pending Studies Studies pending at discharge: no Medical Emergencies . Who to Call and When: Medical Emergencies: If at any time you feel your situation is an emergency, please call 911 immediately. . Non-Emergent Contact Non-Emergency issues call your: Surgeon Call Non-Emergent contact if: wound has increased drainage, wound has increased redness . "Provider Documentation" section prepared by Obi Hoyos. . VTE Core Measure Inpt VTE Proph given/why not?: Other Anticoagulation (Aspirin 325 twice a day for 6 weeks)
[2017-05-17] MEDS: CEFAZOLIN IV 2,000 MG in SYRINGE 0 ML IV SCH (18:20)
[2017-05-17] MEDS: FLUTICASONE PROPIONATE NA SPR 16 GM BTL SCH (21:00)
[2017-05-17] MEDS: ASPIRIN 325 MG ECTAB PO SCH (21:49)
[2017-05-17] MEDS: DOCUSATE SODIUM 100 MG CAP PO SCH (21:49)
[2017-05-17] MEDS: SENNA 8.6 MG TAB PO SCH (21:49)
[2017-05-17] MEDS: ROSUVASTATIN CALCIUM 20 MG TAB PO SCH (21:49)
[2017-05-18] MEDS: SODIUM CHLORIDE 0.9% 1000ML 1,000 ML IV SCH ×2 (02:04→09:49)
[2017-05-18] MEDS: CEFAZOLIN IV 2,000 MG in SYRINGE 0 ML IV SCH (02:04)
[2017-05-18 03:21] VITALS: BP 153/77; PULSE 84; TEMP 36.7; O2SAT 97
[2017-05-18] MEDS: KETOROLAC TROMETHAMINE 15 MG/ML VIAL IV. SCH ×4 (03:31→21:48)
[2017-05-18 06:06] LABS: BASO % 0.1 %; BASO ABS # 0.01 K/uL (0-0.2); COMPLETE YES; EOS % 1.2 %; IG% 0.2 %; LYMPH % 12.5 %; LYMPH ABS # 1.03 K/uL (1.2-3.4); MEAN CELL VOLUME 97.8 fL (80-100); MEAN CORPUSCULAR HGB CONC 33.7 g/dl (32-36); MEAN PLATELET VOLUME 10.9 fL (7.4-10.4); MONO % 11.6 %; NEUT % 74.4 %; PLATELET COUNT 128 K/uL (130-400); RED BLOOD COUNT 2.76 M/uL (4.7-6.1); WHITE BLOOD COUNT 8.21 K/uL (4.8-10.8)
[2017-05-18 06:37] LABS: BUN/CREATININE RATIO 20.1 (10-20); CALCIUM 7.7 mg/dl (8.5-10.1); CREATININE 1.11 mg/dl (0.60-1.40); POTASSIUM 4.1 mmol/L (3.5-5.1)
--- NOTE | 2017-05-18 06:58 | PROGRESS NOTE ---
DATE: 05/18/2017 CHIEF COMPLAINT: Status post left total hip arthroplasty postop day #1. PROGRESS: Edi was seen and examined at bedside today. Overall, he is doing extremely well. He was up and ambulating around the hallways already last night. He was able to get some sleep last night. His pain is controlled. He has no complaints. PHYSICAL EXAMINATION: LEFT HIP: The Prevena VAC dressing is to suction and the drain is to suction. He has active dorsiflexion and plantarflexion of his left ankle and his quad sensation is intact. LABORATORY DATA: He has an H&H today of 9.1 and 27.0. his PRP is still pending. His vital signs are stable on room air. He is voiding on his own and his drain output has been 275. X-rays of the left hip postoperatively show the prosthesis to be in anatomic alignment without any evidence of fracture, dislocation or loosening. IMPRESSION: Status post left total hip arthroplasty postop day #1. PLAN: At this point, he is doing very well. He is on aspirin 325 mg twice a day for DVT prophylaxis. He will be seen by physical therapy today. Tomorrow morning, the nursing staff can pull the drain and will likely discharge him to home.
[2017-05-18 07:33] VITALS: BP 149/75; PULSE 75; TEMP 37; O2SAT 97
[2017-05-18] MEDS: ASPIRIN 325 MG ECTAB PO SCH ×2 (08:19→20:41)
[2017-05-18] MEDS: MULTIVITAMIN TAB PO SCH (08:20)
[2017-05-18] MEDS: DOCUSATE SODIUM 100 MG CAP PO SCH ×2 (08:20→20:41)
[2017-05-18] MEDS: PANTOprazole SOD 40 MG TAB PO SCH (09:50)
[2017-05-18 15:22] VITALS: BP 108/56; PULSE 74; TEMP 37.3; O2SAT 98
[2017-05-18] MEDS: ROSUVASTATIN CALCIUM 20 MG TAB PO SCH (20:41)
[2017-05-18] MEDS: FLUTICASONE PROPIONATE NA SPR 16 GM BTL SCH (20:41)
[2017-05-18] MEDS: SENNA 8.6 MG TAB PO SCH (20:41)
[2017-05-19 00:06] VITALS: BP 118/59; PULSE 84; TEMP 36.8; O2SAT 95
[2017-05-19] MEDS: KETOROLAC TROMETHAMINE 15 MG/ML VIAL IV. SCH ×2 (04:07→09:44)
[2017-05-19 07:40] VITALS: BP 117/69; PULSE 76; TEMP 36.9; O2SAT 99
[2017-05-19] MEDS: DOCUSATE SODIUM 100 MG CAP PO SCH (08:22)
[2017-05-19] MEDS: ASPIRIN 325 MG ECTAB PO SCH (08:22)
[2017-05-19] MEDS: PANTOprazole SOD 40 MG TAB PO SCH (08:22)
[2017-05-19] MEDS: MULTIVITAMIN TAB PO SCH (08:22)
[2017-05-19] MEDS ORDERED: ASPEC325 PO (09:16)
--- NOTE | 2017-05-19 09:41 | PROGRESS NOTE ---
DATE: 05/19/2017 CHIEF COMPLAINT: Status post left total hip arthroplasty postop day #2. PROGRESS: Edi was seen and examined at bedside today. Overall, he is doing very well. He has a little more soreness in his hip today, but he worked well yesterday with physical therapy. He has no other complaints. PHYSICAL EXAMINATION: LEFT HIP: The Prevena VAC dressing is to suction. His leg lengths are equal. He has active dorsiflexion and plantarflexion of his left ankle and sensation is intact. IMPRESSION: Status post left total hip arthroplasty postop day #2. PLAN: At this point, he is doing well. The nursing staff pulled the drain early this morning. He will be seen by physical therapy again today. He can be discharged to home later this morning.
--- NOTE | 2017-05-19 09:50 | DISCHARGE SUMMARY ---
DISCHARGE DIAGNOSIS: Primary osteoarthritis of the left hip. PROCEDURE: Left total hip arthroplasty on 05/17/[address] Obi Hoyos. DISCHARGE INSTRUCTIONS: 1. Aspirin 325 mg twice a day for 6 weeks. 2. Hydrocodone as needed for pain. 3. Tylenol 650 mg as needed. 4. Flonase 50 mcg spray daily. 5. Crestor 20 mg at night. 6. OSCAR hose stockings for 6 weeks. 7. Follow up with Dr. Hoyos in 2 weeks. 8. Call the office of Dr. Hoyos with any questions or concerns. 9. Leave the Prevena VAC dressing on for 7-10 days. HOSPITAL COURSE: Edi is an 81-year-old male who I did a right total hip arthroplasty about 3 months ago. He was having complaints of left hip pain. X-rays and clinical examination were diagnostic for primary osteoarthritis of the left hip. After failing conservative treatment, he elected to undergo a left total hip arthroplasty. On 05/17/2017, he arrived at [facility] and underwent a left hip replacement without complication. He had a spinal anesthetic. Postoperatively, Prevena VAC dressing was placed prophylactically. He was started on aspirin 325 mg twice a day and discharged to general orthopedic floor. His hospital course was uneventful. On postop day #1, his H&H was stable at 9.1 and 27.0. He was up and ambulating well with physical therapy and he had very little pain. On postop day #2, the drain was pulled. He continued to do well with therapy and he was subsequently discharged to home with the above instructions.
[2017-05-19 10:28] VITALS: BP 117/69; PULSE 76; TEMP 36.9; O2SAT 99
== END 2017-05-19 11:29 | disposition home health service (06) | DRG 470 ==
LOC: C.ACU 07:19 → C.3E 09:30 → ENRESERV 13:26
PROVIDERS: ADMIT Orthopaedic Surgery; ATTEND Orthopaedic Surgery
PROC: 0HBHXZZ Excision of Right Upper Leg Skin, External Approach (ICD-10-PCS; principal; 2017-05-17 10:05)
PROC: 0SRB04A Replacement of Left Hip Joint with Ceramic on Polyethylene Synthetic Substitute, Uncemented, Open Approach (ICD-10-PCS; principal; 2017-05-17 10:05)
DX: M16.12 Unilateral primary osteoarthritis, left hip (principal); E78.5 Hyperlipidemia, unspecified; Z96.641 Presence of right artificial hip joint; Z96.652 Presence of left artificial knee joint; Z79.82 Long term (current) use of aspirin; Z79.899 Other long term (current) drug therapy

== ENCOUNTER → 2017-07-01 | Outpatient (CLI) | payer OTHER ==
[~2017-07-01] MED LIST changes: +ACET325T96 PO; -ACETAMINOPHEN 500 MG TAB PO SCH; +ASPEC325 PO; -ASPI81TA28 PO; -ATROPINE SULFATE 0.1 MG/ML 5ML SYR IV PRN; -BUPIVACAINE 0.5 % 5 MG/1 ML PF 10ML VIAL ONE; -CEFAZOLIN 2000MG IV PUSH 10 ML IV SCH; -EpHEDrine SULFATE INJ 50 MG/ML AMP IV PRN; -FAMOTIDINE 20 MG TAB PO SCH; -GABAPENTIN 300 MG CAP PO SCH; -LACTATED RINGER'S 1000ML 1,000 ML IV SCH; -LACTATED RINGER'S 1000ML 500 ML IV ONE; -LACTATED RINGER'S 1000ML IV SCH; -ONDANSETRON INJ 2 MG/ML 2 ML VIAL IV PRN; -ROPIVACAINE 5MG/ML 30 ML 150 MG, BUPIVACAINE 0.5% MPF INJ 30 ML, EpINEphrine HCL INJ 0.... INFIL SCH
[2017-07-01 13:18] LABS: HEMOGLOBIN A1C 5.3 % (4.5-5.6)
[2017-07-01 13:37] LABS: BLOOD UREA NITROGEN 16 mg/dl (7-18); CALCIUM 8.9 mg/dl (8.5-10.1); CARBON DIOXIDE 24 mmol/L (21-32); CREATININE 0.98 mg/dl (0.60-1.40); GLUCOSE 100 mg/dl (70-99); POTASSIUM 4.1 mmol/L (3.5-5.1); SODIUM 134 mmol/L (136-145)
[2017-07-01 13:40] LABS: CHOLESTEROL 174 mg/dl (0-200); LDL CHOLESTEROL (DIRECT) 102 mg/dl
== END | disposition home or self-care (01) ==
LOC: C.LABSPEC 12:34
PROVIDERS: ATTEND Internal Medicine
DX: R73.9 Hyperglycemia, unspecified (principal); E78.5 Hyperlipidemia, unspecified; Z85.46 Personal history of malignant neoplasm of prostate

== ENCOUNTER → 2017-09-11 | Outpatient (CLI) | payer OTHER ==
[~2017-09-11] MED LIST changes: +ACET-1693 PO; -ACET325T96 PO
[2017-09-11 14:07] LABS: BASO % 0.5 %; BASO ABS # 0.03 K/uL (0-0.2); EOS % 3.1 %; EOS ABS # 0.17 K/uL (0-0.5); HEMATOCRIT 40.6 % (42-52); HEMOGLOBIN 14.1 g/dL (14.0-18.0); IG# 0.01 K/uL (0.00-0.02); LYMPH % 24.9 %; LYMPH ABS # 1.36 K/uL (1.2-3.4); MEAN CELL VOLUME 95.5 fL (80-100); MEAN CORPUSCULAR HEMOGLOBIN 33.2 pg (25-34); MEAN CORPUSCULAR HGB CONC 34.7 g/dl (32-36); MEAN PLATELET VOLUME 10.7 fL (7.4-10.4); MONO % 10.8 %; MONO ABS # 0.59 K/uL (0.11-0.59); NEUT % 60.5 %; NEUT ABS # 3.31 K/uL (1.4-6.5); PLATELET COUNT 153 K/uL (130-400); RED CELL DISTRIBUTION WIDTH CV 15.8 % (11.5-14.5); WHITE BLOOD COUNT 5.47 K/uL (4.8-10.8)
[2017-09-11 14:38] LABS: ALBUMIN 3.8 gm/dl (3.4-5.0); ALT/SGPT 29 U/L (12-78); AST/SGOT 18 U/L (15-37); BLOOD UREA NITROGEN 19 mg/dl (7-18); CALCIUM 8.7 mg/dl (8.5-10.1); CARBON DIOXIDE 23 mmol/L (21-32); CREATININE 1.13 mg/dl (0.60-1.40); GLUCOSE 123 mg/dl (70-99); POTASSIUM 4.1 mmol/L (3.5-5.1); SODIUM 137 mmol/L (136-145)
[2017-09-11 14:40] LABS: ALKALINE PHOSPHATASE 63 U/L (45-117)
== END | disposition home or self-care (01) ==
LOC: C.LABSPEC 12:50
PROVIDERS: ATTEND Internal Medicine
DX: L29.9 Pruritus, unspecified (principal)

== ENCOUNTER → 2018-01-01 | Outpatient (CLI) | payer OTHER ==
[2018-01-01 14:33] LABS: ALBUMIN 3.8 gm/dl (3.4-5.0); ALKALINE PHOSPHATASE 53 U/L (45-117); ALT/SGPT 25 U/L (12-78); AST/SGOT 21 U/L (15-37); BLOOD UREA NITROGEN 18 mg/dl (7-18); CALCIUM 8.9 mg/dl (8.5-10.1); CARBON DIOXIDE 24 mmol/L (21-32); CHOLESTEROL 147 mg/dl (0-200); CREATININE 1.17 mg/dl (0.60-1.40); GLUCOSE 96 mg/dl (70-99); LDL CHOLESTEROL (DIRECT) 74 mg/dl; POTASSIUM 4.2 mmol/L (3.5-5.1); SODIUM 136 mmol/L (136-145); TOTAL PROTEIN 6.7 gm/dl (6.4-8.2)
[2018-01-01 14:47] LABS: HEMOGLOBIN A1C 5.7 % (4.5-5.6)
== END | disposition home or self-care (01) ==
LOC: C.LABSPEC 13:41
PROVIDERS: ATTEND Internal Medicine
DX: Z00.00 Encounter for general adult medical examination without abnormal findings (principal); E78.5 Hyperlipidemia, unspecified; R73.9 Hyperglycemia, unspecified; Z85.46 Personal history of malignant neoplasm of prostate

== ENCOUNTER → 2018-01-13 | Outpatient (CLI) | payer OTHER ==
[2018-01-13 18:25] LABS: FECAL OCCULT BLOOD #1 NEGATIVE (NEGATIVE); FECAL OCCULT BLOOD #2 NEGATIVE (NEGATIVE); FECAL OCCULT BLOOD #3 NEGATIVE (NEGATIVE)
== END | disposition home or self-care (01) ==
LOC: C.LABSPEC 17:51
PROVIDERS: ATTEND Internal Medicine
DX: Z12.11 Encounter for screening for malignant neoplasm of colon (principal)

== ENCOUNTER 2021-10-31 08:39 | Inpatient (IN) ==
--- NOTE | 2021-10-26 16:14 | PAT Medication Instructions ---
Medication Instructions Date of Service October 26, 2021 Home Medications fluticasone propionate 50 mcg/actuation nasal spray,suspension (Flonase Allergy Relief) 1 spray INTRANASAL HS rosuvastatin 20 mg tablet 20 mg PO HS amlodipine 2.5 mg tablet 2.5 mg PO HS aspirin 81 mg tablet,delayed release (Adult Aspirin Regimen) 81 mg PO HS clopidogrel 75 mg tablet 75 mg PO HS ASK your prescriber and surgeon aspirin 81 mg tablet,delayed release (Adult Aspirin Regimen) 81 mg PO HS clopidogrel 75 mg tablet 75 mg PO HS Take morning of surgery With a small sip of water, OTHERWISE NOTHING TO EAT OR DRINK AFTER MIDNIGHT: Take evening before surgery fluticasone propionate 50 mcg/actuation nasal spray,suspension (Flonase Allergy Relief) 1 spray INTRANASAL HS rosuvastatin 20 mg tablet 20 mg PO HS amlodipine 2.5 mg tablet 2.5 mg PO HS Other Notes If you have any questions please call us at [phone] or [phone] or [phone] or [phone]
--- NOTE | 2021-10-27 14:34 | Anesthesiology Consultation ---
Date of Service October 27, 2021 Assessment & Plan (1) Encounter for pre-operative examination: - COVID screening: Per assessment on 10/27: No known COVID-19 positive contacts or current COVID-19 related symptoms. Travel screen negative. Surgeon arranging preop COVID testing. Patient having preop Covid test at [facility] (10/27). Awaiting results. - Cardiology office visit (10/09/21): "amaurosis fugax:The patient appears to have had an embolic event involving the right eye. His symptoms have nearly resolved completely. He did not report other neurologic symptoms. He has no history of palpitations. We will evaluate his carotid arteries and perform an echocardiogram. In the absence of any significant abnormalities consideration could be given to long-term rhythm monitoring. I asked him to start taking a baby aspirin again.. Hypertension: Patient seems to have elevated blood pressure. He was prescribed a very small dose ( 1.25 mg) of amlodipine. Unclear why such a small dose was chosen. I asked him to take a full pill which would be 2.5 mg daily. We will need to monitor his blood pressure over time and increase the dose as necessary." - Cardiology office visit (10/24/21): "Patient seen today after alerted to severe, ulcerated appearing right ICA stenosis in the setting of recent symptoms. Also with contralateral left ICA disease. Discussed findings and options with patient. No recent symptoms since initial event. Will start on clopidogrel in addition to baby aspirin. Contacted patient's primary care physician Dr. Plummer who will see patient tomorrow. Also referring event executive Dr. Ramos. Also discussed with vascular surgery, Dr. Pace who can see patient on ." - Cardiology addendum (10/29/21): Cardio was made aware that CEA was scheduled prior to patient having previously ordered Echo performed. Per cardio note (): "The patient does not require an echocardiogram prior to his planned CEA. This evaluation was planned to assess a possible cardiac source of his embolic event, but the carotid findings are the most likely source and will need to be addressed regardless of findings on his echocardiogram" > Cardio was able to obtain Echo prior to surgery- done 10/30/21 and unremarkable* - ASA/plavix instructions per surgeon/prescriber (per pt, was advised to continue perioperatively) Chart Review Chart Review: Acceptable Risk for Surgery and Patient seen in Pre Admission Testing Teaching & Discussion Pre-Anesthesia Teaching/Discussion Notes: Instructed NPO after midnight before surgery,except medications with 15 cc of water. Medication instructions provided according to the PAT guidelines. History Surgery Operation Date: 10/31/21 10:25 Proposed Procedures p Right Carotid Endarterectomy - Bayron Pace MD Height/Weight Height: 5 ft 10.5 in Weight: 99 kg Allergies Allergy/AdvReac Type Severity Reaction Status Date / Time atorvastatin Allergy Intermediate Hives Verified 10/27/21 08:46 oxycodone AdvReac Mild Nausea Verified 10/27/21 08:46 Medications Home Medications Medication Instructions Recorded Confirmed Last Taken fluticasone propionate 50 1 spray INTRANASAL HS 10/05/21 10/26/21 Unknown mcg/actuation nasal spray,suspension (Flonase Allergy Relief) rosuvastatin 20 mg tablet 20 mg PO HS 10/05/21 10/26/21 Unknown amlodipine 2.5 mg tablet 2.5 mg PO HS tab 10/09/21 10/26/21 Unknown aspirin 81 mg tablet,delayed 81 mg PO HS 10/26/21 10/26/21 Unknown release (Adult Aspirin Regimen) clopidogrel 75 mg tablet 75 mg PO HS 10/26/21 10/26/21 Unknown Past Medical History Medical History Carotid stenosis > 70% B/L ICA stenosis (DENISE with irregular, crater-like plaque formation suggestive of ulcerative plaque) per 10/24/21 carotid doppler Hyperlipidemia Hypertension Metatarsalgia of right foot 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 Perez's note: Hx of recent transient monocular visual loss, pt denies any other stroke-like symptoms Wears hearing aid Exercise / Class Metabolic Activity II 4-5 Yardwork/Stairs/Walk up hill (one FS (no CP, no SOB)) Past Family History Family History Other No family history of adverse response to anesthesia Past Surgical History Surgical History History of bilateral cataract extraction History of foot surgery x3 (right foot) History of nasal polypectomy History of prostate biopsy Malignant History of prostate surgery Status post prostate seed implant History of right hip replacement Left anterior VALENTÍN (05/17/17): SAB at L3/4 (x1 attempt) at [facility]. No issues noted per post-op anesthesia progress note. History of tooth extraction History of total left hip replacement History of total left knee replacement (TKR) Past Anesthesia History No Hx of Anesthesia Complications and No Family Hx of Anesthesia Complications History of PONV No Hx of PONV and No Hx of Motion Sickness Social History Smoking Status: Light tobacco smoker tobacco type: cigars Smoking cigarettes per day: smokes 1 cigar every day (advised policy) Do You Dip or Chew Tobacco: No Smoking End Date: quit 1972 after smoking 1 pack a day for 20yrs Hx Alcohol Use: Yes ("2 cans a beer a month") Alcohol type: beer alcohol intake frequency: a few times a month Hx Substance Use: No substance use type: does not use Review of Systems Patient denies chest pain, shortness of breath, dyspnea on exertion, fever, chills, cough, wheezing, palpitations. Physical Exam Vital Signs VITALS BP 168/70 P 72 TEMP 98.4 SP02 96%RA RESP 16 PHYSICAL Full cervical extension range of motion. Full TMJ range of motion. TMD 4 finger breaths Mallampati Score 3 Dentition: several "false teeth bolted in" Lungs: clear throughout to auscultation Cardiac: regular rate and rhythm, no murmurs noted Spine: normal Carotid arteries: negative bruit Extremities: no edema Lab Results Anesthesia Preop Results Results Anesthesia Widget: WBC 6.28 K/uL (4.8-10.8) 10/27/21 Hgb 14.3 g/dL (14.0-18.0) 10/27/21 Hct 41.0 % (42-52) L 10/27/21 Plt 167 K/uL (130-400) 10/27/21 Na 136 mmol/L (136-145) 10/27/21 K 4.5 mmol/L (3.5-5.1) 10/27/21 Cl 103 mmol/L (98-107) 10/27/21 CO2 28 mmol/L (21-32) 10/27/21 BUN 19 mg/dl (6-23) 10/27/21 Creat 1.36 mg/dl (0.6-1.4) 10/27/21 Glucose Level 94 mg/dl (70-99(Fasting)) 10/27/21 PT 10.6 Seconds (9.0-12.0) 10/27/21 PTT 27.5 Seconds (21.0-31.0) 10/27/21 INR 1.0 (0.9-1.1) 10/27/21 Blood Type A Positive 10/27/21 Antibody Screen NEGATIVE 10/27/21 Testing Electrocardiogram Date: 10/27/21 NSR at 66bpm. Chest X-Ray Date: 10/27/21 FINDINGS: Frontal and lateral radiographs of the chest demonstrate the cardiomediastinal silhouette to be within normal limits. There is hyperinflation of the lungs with attenuation of the pulmonary vasculature peripherally characteristic of underlying chronic obstructive pulmonary disease. The lungs are clear of alveolar opacities. There is no evidence for effusion bilaterally. There is no evidence for vascular congestion. There is no acute osseous pathology. IMPRESSION: No acute cardiopulmonary disease. Evidence for underlying COPD. Echocardiogram Date: 10/30/21 EF 60-65%. No RWMA. Mild cLVH. Mild LAD. Borderline aortic root dilatation. Grade I DD. No significant valvular disease. Compared to study 10/06/12, no significant change per report. Other Testing Carotid doppler (10/24/21) > 70% b/l ICA stenosis. DENISE with irregular, crater-like plaque formation suggestive of ulcerative plaque. Antegrade flow in both vertebral arteries. CTA Neck (10/30/21) There is a 5 mm left thyroid nodule present. The lung apices appear within normal limits. Approximately 70-80% stenosis of the origin of the right internal carotid artery by NASCET criteria. Less than 50% stenosis of the origin of the left internal carotid artery.
--- NOTE | 2021-10-31 07:51 | History & Physical Report ---
Date of Service October 31, 2021 History of Present Illness Primary Care Provider: Raymundo Plummer MD Name: ROLAND WEST Patient Number: [id number] : 1935 Date of Service: 10/26/2021 Chief Complaint: _New patient consultation for carotid stenosis HPI: _Mr. West is an elderly male who presents to Dr. Pace's vascular surgery clinic today as a new patient in consultation for bilateral ICA stenosis and right sided amaurosis symptoms. Patient states that about 6 weeks ago he had a transient speck of vision loss in the right eye which only lasted a few moments. He then states that he had a second event about 4 weeks ago where he lost the entire top half of his right eye vision and this lasted less than an hour, as he then went to sleep and woke up the next morning and it was fine. Patient states he had never had symptoms similar to these in the past, and he has not had any further events. He states that he told his primary care physician who had him scheduled with an assistant principal who then referred him to cardiology and he underwent a carotid ultrasound. Patient denies any other associated symptoms, including confusion, syncope or near syncope, seizure-like activity, facial droop, difficulty speaking or swallowing, unilateral extremity weakness numbness or tingling, headache. He denies other symptoms as well including fever chills nausea vomiting chest pain shortness of breath, abdominal pain, nausea, vomiting, rest pain, claudication, nonhealing wounds or ulcerations, other complaints. He denies any history of myocardial infarction or other cardiac problems. Review of systems: Total of 14 systems were reviewed and are negative aside from what is related in his HPI Imaging: Bilateral carotid ultrasound performed on 10/25/2021 demonstrates over 70% stenosis of his bilateral ICAs, with an ulcerated plaque in the right. Current Home Meds: (Last Updated 10/26 11:18) aspirin (Aspir 81 oral delayed release tablet) 81 mg PO Daily clopidogrel (clopidogrel 75 mg oral tablet) 75 mg PO Daily rosuvastatin (rosuvastatin 20 mg oral tablet) 20 mg PO Daily Allergies and Sensitivities: Lipitor(Hives) Past Medical History: Problems: Carotid stenosis Tobacco user prostate cancer Osteoarthritis Hearing loss hypercholesterolemia Carpal tunnel syndrome Hypertension Surgical history: Nasal polypectomy, bilateral total hip arthroplasties, left total knee arthroplasty, foot surgery, prostate biopsy, insertion of radioactive seeds in prostate, dental extractions, cataracts Family history: Positive for hypertension and diabetes Social history: Patient is a prior smoker, having smoked 1 pack a day for 20 years and quit in 1972. Patient drinks about 2 beers per week. He is and lives at home with his . He denies any illicit drug use OBJECTIVE Vitals: Last Updated 10/26/21 11:16 Date Temp BP Location Pulse RR SpO2 Pain 10/26/21 152/72 Right Arm 10/26/21 156/72 Left Arm 73 97 10/26/21 0 Vital Signs are the last 3 documented. No Orthostatic Data Available No Height/Weight Data Available Physical Exam Constitutional: In general patient is a healthy-appearing well-nourished female elderly male no distress. He is alert and oriented without any focal deficits. His head is normocephalic and atraumatic. Neck is supple nontender with midline trachea. He has faint carotid bruits. His heart is regular, his lungs are clear throughout. His abdomen is soft nontender with normoactive bowel sounds in all 4 quadrants. Brachial radial and femoral pulses are +3. DP pulses are +3 in the right +2 in the left. PT pulses are +1 bilaterally. He has brisk capillary refill and no sign of distal ischemia. ASSESSMENT: _ PLAN: _ 1 ) _bilateral ICA stenosis with right-sided amaurosis fugax Patient has severe bilateral ICA stenoses. In looking at the ultrasound, his left ICA does appear to be somewhat more stenosed than his right, however, his right side demonstrates an ulcerative plaque and patient is symptomatic with visual symptoms. Patient was also seen by Dr. Pace today. Due to the severity of the stenosis and his symptomatology, we recommended the patient undergo a right carotid endarterectomy procedure. This will be scheduled next week at [facility]. Patient will undergo CTA of the neck prior to his procedure. The procedure, risks, benefits and alternatives were discussed with the patient by myself at Dr. Pace's request. Patient expresses understanding and agreement to proceed. He is to call with any other questions. Thank you for letting us participate in the care of this patient. Signature Line Electronic Signature on File CC: Raymundo Johnson MD [address] [place] [id number] * CC: Ashu Ramos MD [id number] [facility] [address] * Electronically Reviewed/Signed by: Kimber Nogueira PA-C Author Signature Dt/Tm:10/26/2021 03:04 PM [facility] [address] [place] [address] Electronically Reviewed/Signed by: MD Tami Barberigner Signature Dt/Tm: 10/30/2021 12:02 PM Security Installer [facility] [address], [address] [place] [address] LM Result Type: HVI Outpt Note Date of Service: October 26, 2021 14:50 EDT Authorization Status: Final Author or Import Date: ELIER Nogueira, Kimber on October 26, 2021 15:04 EDT Verified By: MD Sanjeev, Bayron Robb on October 30, 2021 12:02 EDT Encounter info: [id number], [facility], Clinic, 10/26/2021 - 10/26/2021 Allergies Allergy/AdvReac Type Severity Reaction Status Date / Time atorvastatin Allergy Intermediate Hives Verified 10/27/21 08:46 oxycodone AdvReac Mild Nausea Verified 10/27/21 08:46 Home Medications Medication Instructions Recorded Confirmed Type fluticasone propionate 50 1 spray INTRANASAL HS 10/05/21 10/26/21 History mcg/actuation nasal spray,suspension (Flonase Allergy Relief) rosuvastatin 20 mg tablet 20 mg PO HS 10/05/21 10/26/21 History amlodipine 2.5 mg tablet 2.5 mg PO HS tab 10/09/21 10/26/21 History aspirin 81 mg tablet,delayed 81 mg PO HS 10/26/21 10/26/21 History release (Adult Aspirin Regimen) clopidogrel 75 mg tablet 75 mg PO HS 10/26/21 10/26/21 History Past Med/Surg History Medical History Carotid stenosis > 70% B/L ICA stenosis (DENISE with irregular, crater-like plaque formation suggestive of ulcerative plaque) per 10/24/21 carotid doppler Hyperlipidemia Hypertension Metatarsalgia of right foot 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 Perez's note: Hx of recent transient monocular visual loss, pt denies any other stroke-like symptoms Wears hearing aid Surgical History History of bilateral cataract extraction History of foot surgery x3 (right foot) History of nasal polypectomy History of prostate biopsy Malignant History of prostate surgery Status post prostate seed implant History of right hip replacement Left anterior VALENTÍN (05/17/17): SAB at L3/4 (x1 attempt) at [facility]. No issues noted per post-op anesthesia progress note. History of tooth extraction History of total left hip replacement History of total left knee replacement (TKR) Family History Other No family history of adverse response to anesthesia Social History Smoking Status: Light tobacco smoker Cigarettes Per Day: smokes 1 cigar every day (advised policy); Second Hand Exposure: No; Hx Alcohol Use: Yes ("2 cans a beer a month") Alcohol type: beer Hx Substance Use: No Preferred Language: Welsh Communication Ability: Effective Quality Assurance Group Leader Required: No Beliefs That Will Affect Care: None Current Living Situation: Spouse Feels Safe at Home: Yes Assistive Devices: Glasses and Hearing Aid - Bilateral
[~2021-10-31 08:39] MED LIST changes: -ACET-1693 PO; -ASPEC325 PO; -FLUT0.15; -ROSU20TA PO; +SODIUM CHLORIDE 0.9% 1000ML IV SCH; +ceFAZolin 1000MG 1,000 MG/7.5 ML SYR IV SCH
[2021-10-31] MEDS ORDERED: GELATIN SPONGE SZ 100 ONE (08:48)
[2021-10-31] MEDS ORDERED: LIDOCAINE 1% LOCAL 20 ML VIAL ONE (08:48)
[2021-10-31] MEDS ORDERED: THROMBIN FOR SOLN 20000 UNIT KIT ONE ×2 (08:48→13:46)
[2021-10-31] MEDS ORDERED: HEPARIN (PORCINE) 1000 UNIT/ML 10 ML (CATH LAB USE ONLY) ONE (08:48)
[2021-10-31] MEDS ORDERED: EPINEPHrine INJ 1 MG/ML AMP ONE (08:49)
[2021-10-31] MEDS ORDERED: BUPIVACAINE 0.5 % 5 MG/1 ML MPF 30ML VIAL ONE (08:49)
[2021-10-31] MEDS ORDERED: MIDAZOLAM HCL 1 MG/ML 2ML VIAL ONE (09:17)
[2021-10-31] MEDS ORDERED: fentaNYL citrate 100 MCG/2 ML VIAL ONE ×3 (09:17→13:17)
[2021-10-31] MEDS ORDERED: ONDANSETRON INJ 2 MG/ML 2 ML VIAL ONE (09:20)
[2021-10-31] MEDS ORDERED: ROCURONIUM BROMIDE 10 MG/ML 5 ML VIAL IV ONE ×2 (09:20→11:40)
[2021-10-31] MEDS ORDERED: LIDOCAINE 2% 2 ML VIAL/AMP(20MG/ML) INFIL ONE (09:20)
[2021-10-31] MEDS ORDERED: PROPOFOL IV EMULSION 10 MG/ML 20 ML VIAL IV ONE ×2 (09:20→13:42)
[2021-10-31] MEDS ORDERED: fentaNYL citrate 100 MCG/2 ML VIAL IV PRN (09:29)
[2021-10-31] MEDS ORDERED: ATROPINE SULFATE 0.1 MG/ML 10ML SYR IV PRN (09:29)
[2021-10-31] MEDS ORDERED: ePHEDrine sulfate 50 MG/ML AMP IV PRN (09:29)
[2021-10-31] MEDS ORDERED: ONDANSETRON INJ 2 MG/ML 2 ML VIAL IV PRN ×2 (09:29→15:51)
[2021-10-31] MEDS: ceFAZolin 330 MG/ML 1 GM VIAL ONE ×2 (09:32→12:46)
[2021-10-31 09:43] LABS: BUN Creatinine Ratio 18.4 (10-20); Calcium 9.5 mg/dl (8.5-10.1); Creatinine Clr Calc Pharmacy 63.2 ml/min
--- NOTE | 2021-10-31 09:45 | History & Physical Bridge Note ---
Date of Service October 31, 2021 History & Physical Bridge Note Patient for a right carotid endarterectomy today. I have discussed the risks options and benefits of the procedure with the patient. The patient understands the risks options and benefits and agrees to the procedure. I have examined the patient, reviewed the History & Physical and in the interval since the performance of the History & Physical I have noted the following changes of clinical significance: no changes noted
[2021-10-31] MEDS ORDERED: PHENYLEPHRINE HCL 10 MG/ML VIAL ONE (10:36)
[2021-10-31] MEDS ORDERED: ePHEDrine sulfate 50 MG/ML AMP ONE (10:36)
[2021-10-31] MEDS ORDERED: DEXAMETHASONE SOD INJ 4 MG/ML VIAL ONE (11:40)
[2021-10-31] MEDS ORDERED: NEOSTIGMINE METHYLSULFATE 1 MG/ML 10ML VIAL ONE ×2 (11:40→12:35)
[2021-10-31] MEDS ORDERED: GLYCOPYRROLATE 0.2 MG/ML VIAL ONE (11:40)
--- NOTE | 2021-10-31 12:19 | Post Operative Brief Note ---
Immediate Post Op Note v1 Date of Surgery October 31, 2021 Pre & Post Diagnosis Operation Date: 10/31/21 10:25 Pre-Op Diagnosis: Right Internal Carotid Artery Stenosis with amaurosis symptoms Post-Op Diagnosis: Right Internal Carotid Artery Stenosis with amaurosis symptoms I identified the patient and participated in the time-out.: Yes Procedure Operation Date: 10/31/21 10:25 Actual Procedures p Right Carotid Endarterectomy(Right) with bovine patch- Bayron Pace MD Surgeon Bayron Pace MD Yacht Hand MD Jim Baig,PAC Estimated Blood Loss 75 Findings Consistent with Post-Op Diagnosis Anesthesia Type General Complications none Disposition Accompanied Patient To Recovery: No Disposition: Recovery Room
--- NOTE | 2021-10-31 12:58 | Operative Report ---
Post Operative Report Pre & Post Diagnosis Operation Date: 10/31/21 10:25 Pre-Op Diagnosis: Right Internal Carotid Artery Stenosis with amaurosis symptoms Post-Op Diagnosis: Right Internal Carotid Artery Stenosis with amaurosis symptoms I identified the patient and participated in the time-out.: Yes Procedure Operation Date: 10/31/21 10:25 Actual Procedures p Right Carotid Endarterectomy(Right) - Bayron Pace MD Surgeon Bayron Pace MD Stull Hewer MD Viviana Baigarchedgar,PAC Estimated Blood Loss 75 Findings Consistent with Post-Op Diagnosis Neuro intact at the end of the case Specimens None Anesthesia Type General Complications none immediate Indications 85 yo M with history of severe symptomatic right carotid artery disease characterized by right eye visual changes. He is consented to undergo R CEA Description of Procedure The patient was taken to the operating room and placed in supine position. After general anesthesia was accomplished the Right-side of the neck was prepped and draped in a sterile manner. The patient was identified and a timeout performed. A longitudinal neck incision was then made coursing along the medial border of the sternocleidomastoid muscle. The incision was taken down through the platysmal layer. Dissection was quite difficult as the patient had frozen neck and we were not able to rotate and extend the neck sufficiently. The facial vein was identified, ligated, and divided. The common carotid artery was then seen. It was dissected free down to the omohyoid muscle. The dissection was carried upward until the external carotid artery and superior thyroid artery was seen. The superior thyroid artery was slung with a 2-0 silk suture. The external carotid was slung with a red rubber vessel loop. Next the dissection was carried up along the internal carotid artery. This was carried upward to beyond the area of narrowing. The hypoglossal nerve was seen and preserved. The patient was heparinized with 8000 unit of IV heparin. After adequate heparinization was accomplished, the internal, external, and common carotid arteries were clamped. A longitudinal arteriotomy was started on the common carotid artery and extended upward along the internal carotid artery to a point beyond the area of narrowing. There was calcified ulcerated plaque of the internal carotid artery origin causing approximately 85-90% narrowing. A Doppler shunt was then placed in the internal, followed by the common carotid artery and held in place with Eloy clamps. There was good back bleeding seen from the internal carotid artery. The endarterectomy was then started in the appropriate plane on the common carotid artery. This was carried upward and the external carotid was everted and endarterectomized. The endarterectomy was then carried up along the internal carotid artery till a nice feathering breakoff point was accomplished beyond the end of the plaque. The endarterectomy was then carried down further on the common carotid artery. At end of the arteriotomy, the plaque was then transected. Under loop magnification, all loose debris and flaps werer removed. Distal flap at the end of the endarterectomy site was tacked with 7-0 prolene sutures. The arteriotomy then closed using an Accuseal patch and a running 5-0 prolene suture. This was done in the usual vascular fashion. Prior to completing the closure, the doppler shunt was removed and the internal and common carotid arteries were reclamped. Backbleeding and forward bleeding was allowed to occur. The flow surface was irrigated with heparinized saline. The final few sutures were then placed and securely tied. Clamps were then removed off the external and common carotid arteries. The clamp was then removed the internal carotid artery. Good distal flow was seen. Adequate hemostasis was seen of the patch. The wound was inspected and adequate hemostasis was obtained. The wound was irrigated with antibiotic solution. It was then closed with a running 3-0 Vicryl suture for the platysmal layer and a 4-0 subcuticular Vicryl suture for the skin edges. We injected 12 cc of Marcaine in the wound. Dermabond was used for dressing. The p atient left the operating room in satisfactory condition and tolerated the procedure well. All counts were correct at the end of the procedure. Dr. Pace was present for the entirety of the case. I attest to the content of the Intraoperative Record and any orders documented therein. Any exceptions are noted below.
--- NOTE | 2021-10-31 13:20 | Anesthesiology Consultation ---
Date of Service October 31, 2021 Assessment & Plan Chart Review Chart Review: Acceptable Risk for Surgery and Patient NOT seen in Pre Admission Testing Consults Requested none History Surgery Operation Date: 10/31/21 10:25 Proposed Procedures p Right Carotid Endarterectomy - Bayron Pace MD Operation Date: 10/31/21 13:15 Proposed Procedures p Carotid Return to Surgery - Bayron Pace MD Height/Weight Height: 5 ft 10.5 in Weight: 99 kg Allergies Allergy/AdvReac Type Severity Reaction Status Date / Time atorvastatin Allergy Intermediate Hives Verified 10/31/21 09:03 oxycodone AdvReac Mild Nausea Verified 10/31/21 09:03 Medications Home Medications Medication Instructions Recorded Confirmed Last Taken fluticasone propionate 50 1 spray INTRANASAL HS 10/05/21 10/31/21 10/30/21 21:00 mcg/actuation nasal spray,suspension (Flonase Allergy Relief) rosuvastatin 20 mg tablet 20 mg PO HS 10/05/21 10/31/21 10/30/21 21:00 amlodipine 2.5 mg tablet 2.5 mg PO HS tab 10/09/21 10/31/21 10/30/21 21:00 aspirin 81 mg tablet,delayed 81 mg PO HS 10/26/21 10/31/21 10/31/21 07:30 release (Adult Aspirin Regimen) clopidogrel 75 mg tablet (Plavix) 75 mg PO HS 10/26/21 10/31/21 10/31/21 07:30 Active Medications Generic Name Dose Route Start Last Admin Trade Name Freq PRN Reason Stop Dose Admin Cefazolin Sodium 1,000 mg in 7.5 mls @ 2.5 mls/min 10/31/21 06:00 10/31/21 10:02 Ancef 1000mg IV 10/31/21 18:00 2.5 mls/min PREOP BERTRAM Administration Protocol Sodium Chloride 1,000 mls @ 50 mls/hr 10/31/21 06:00 10/31/21 10:02 Nss 1000ml IV 11/01/21 01:59 Infused .Q20H BERTRAM Infusion NPO Date Last Intake of Fluids: 10/30/21 Time Last Intake of Fluids: 23:59 Last Intake of Fluids Comment: meds with sip of water Date Last Intake of Solids: 10/30/21 Time Last Intake of Solids: 23:59 Past Medical History Medical History Carotid stenosis > 70% B/L ICA stenosis (DENISE with irregular, crater-like plaque formation suggestive of ulcerative plaque) per 10/24/21 carotid doppler Hyperlipidemia Hypertension Metatarsalgia of right foot 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 Perez's note: Hx of recent transient monocular visual loss, pt denies any other stroke-like symptoms Wears hearing aid Past Family History Family History Other No family history of adverse response to anesthesia Past Surgical History Surgical History History of bilateral cataract extraction History of foot surgery x3 (right foot) History of nasal polypectomy History of prostate biopsy Malignant History of prostate surgery Status post prostate seed implant History of right hip replacement Left anterior VALENTÍN (05/17/17): SAB at L3/4 (x1 attempt) at [facility]. No issues noted per post-op anesthesia progress note. History of tooth extraction History of total left hip replacement History of total left knee replacement (TKR) Social History Smoking Status: Light tobacco smoker tobacco type: cigars Smoking cigarettes per day: smokes 1 cigar every day (advised policy) Do You Dip or Chew Tobacco: No Smoking End Date: quit 1972 after smoking 1 pack a day for 20yrs Hx Alcohol Use: Yes ("2 cans a beer a month") Alcohol type: beer alcohol intake frequency: a few times a month Hx Substance Use: No substance use type: does not use Physical Exam Vital Signs Last Vital Signs Temp 97.9 F 10/31/21 09:06 Pulse 68 10/31/21 09:06 Resp 18 10/31/21 09:06 BP 172/89 H 10/31/21 09:42 Pulse Ox 99 10/31/21 09:06 Testing Laboratory Results 10/31/21 09:07 Blood Type A Positive 10/31/21 09:07 Antibody Screen NEGATIVE 10/31/21 09:07
[2021-10-31] MEDS ORDERED: SUCCINYLCHOLINE 100MG/5ML SYR IV ONE (13:42)
[2021-10-31] MEDS ORDERED: ceFAZolin 2000MG 2,000 MG/15 ML SYR IV ONE (14:02)
--- NOTE | 2021-10-31 14:31 | Post Operative Brief Note ---
Immediate Post Op Note v1 Date of Surgery October 31, 2021 Pre & Post Diagnosis Operation Date: 10/31/21 10:25 Pre-Op Diagnosis: Right Internal Carotid Artery Stenosis with amaurosis symptoms Post-Op Diagnosis: Right Internal Carotid Artery Stenosis with amaurosis symptoms Operation Date: 10/31/21 13:15 Pre-Op Diagnosis: Hematoma Right side of neck Post-Op Diagnosis: Hematoma Right side of neck I identified the patient and participated in the time-out.: Yes Procedure Operation Date: 10/31/21 10:25 Actual Procedures p Right Carotid Endarterectomy(Right) - Bayron Pace MD Operation Date: 10/31/21 13:15 Actual Procedures p Evacuation of Hematoma, Control of Bleeding Right side of neck(Right) - Bayron Pace MD Surgeon Bayron Pace MD Relationship Consultant MD Jovanni Estimated Blood Loss 75 Findings Consistent with Post-Op Diagnosis Anesthesia Type General Complications none Disposition Accompanied Patient To Recovery: No Disposition: Recovery Room
--- NOTE | 2021-10-31 15:01 | Operative Report ---
Post Operative Report Pre & Post Diagnosis Operation Date: 10/31/21 10:25 Pre-Op Diagnosis: Right Internal Carotid Artery Stenosis with amaurosis symptoms Post-Op Diagnosis: Right Internal Carotid Artery Stenosis with amaurosis symptoms Operation Date: 10/31/21 13:15 Pre-Op Diagnosis: Hematoma Right side of neck Post-Op Diagnosis: Hematoma Right side of neck I identified the patient and participated in the time-out.: Yes Procedure Operation Date: 10/31/21 10:25 Actual Procedures p Right Carotid Endarterectomy(Right) - Bayron Pace MD Operation Date: 10/31/21 13:15 Actual Procedures p Evacuation of Hematoma, Control of Bleeding Right side of neck(Right) - Bayron Pace MD Surgeon Bayron Pace MD Reel System Operator MD Jovanni Estimated Blood Loss 75 Findings Consistent with Post-Op Diagnosis raw surface oozing. no obvious source of active bleeding and no clots observed at the wound. Neuro intact at the end of the case. Specimens none Anesthesia Type General Complications none immediate Indications 85-year-old male with symptomatic severe right carotid stenosis right carotid endarterectomy. Shortly after in the PACU, there was increasing size of a small soft tissue hematoma. At that time patient was neuro intact and the trachea was central. However, due to the size of the hematoma and concern for future airway compromise, we elected to go back to the OR emergently to evacuate the hematoma. We contacted the patient's and this she agreed to proceed. Description of Procedure Patient was brought to the OR and placed supine. General anesthesia was induced and the patient was intubated. The right arm was tucked and a shoulder roll was placed under the shoulder blades. Patient was prepped and draped in standard fashion. The patient was identified and a timeout performed. The prior skin incision and the platysma layer were opened up and there was a gush of blood coming out. It was approximately 50 cc of fresh blood. No clot was observed. After evacuation of the blood there was no overt source of the bleeding however there was raw surface oozing. We examined the patch. There was some needle hole bleeding at the superior portion that we reinforced with 5-0 Prolene's suture. We applied thrombin Gelfoam and held pressure for approximately 10 mi nutes. We cauterized raw surface area such as the sternocleidomastoid muscle, lymph node, and omohyoid. We also reinforced the tie around the patient vein. We applied more thrombin Gelfoam and helped pressure. The wound then was profusely irrigated with antibiotic solution. After assuring good hemostasis, the platysma was approximated with 3-0 Vicryl. Bia were used to close the skin. The wound was covered with 4 x 4 gauze and Primapore tape. All counts were correct, Dr. Pace was present for the entirety of the case. Patient was extubated. He had intact neuro exam at the end of the case. I attest to the content of the Intraoperative Record and any orders documented therein. Any exceptions are noted below.
--- NOTE | 2021-10-31 15:37 | Anesthesiology Progress Note ---
Date of Service October 31, 2021 Anesthesia Post Procedure Vital Signs Vital Signs: Temp Pulse Pulse Resp BP BP Pulse Ox 10/31/21 15:15 37.3 C 73 13 136/74 96 10/31/21 15:05 37.3 C 68 16 136/73 98 10/31/21 14:55 67 13 119/71 99 10/31/21 14:45 66 18 121/62 98 10/31/21 14:38 35.8 C L 67 10 L 116/69 96 10/31/21 13:15 63 18 153/79 H 98 10/31/21 13:10 63 18 140/78 99 10/31/21 13:03 36.0 C L 66 18 139/78 97 10/31/21 09:42 172/89 H 10/31/21 09:06 36.6 C 68 18 174/96 H 99 Pain Intensity Right Neck: Pain Intensity: 2 Transfer of Care Handoff Completed per policy Notes Mental Status: alert / awake / arousable Patient Amnestic to Procedure: Yes Nausea / Vomiting: adequately controlled Pain: adequately controlled Airway Patency, RR, SpO2: stable & adequate BP & HR: stable & adequate Hydration State: stable & adequate Anesthetic Complications: no major complications apparent and Pt Satisfied with anesthetic care Notes: The patient underwent a right carotid endarterectomy. He had to go back to the OR from the PACU due to hematoma formation. He now feels well. He is moving all of his extremities and talking clearly. He has dressings on his neck and they are dry. His vital signs are stable. Report was given to Dr. Boland.
[2021-10-31] MEDS ORDERED: traMADol HCL 50 MG TABLET PO PRN (15:51)
--- NOTE | 2021-10-31 15:54 | Critical Care Consultation ---
Date of Consultation October 31, 2021 Assessment & Plan (1) Carotid stenosis: 85 yo male PMHx of HTN, HLD, TIA, prostate cancer presented for right carotid endarterectomy 2/2 bilateral ICA stenosis and right sided amaurosis symptoms. S/p right enterectomy complicated by hematoma requiring evacuation of hematoma and control of bleeding. He is currently in the ICU for post op monitoring.Will defer pain management and hemodynamic management to the vascular surgical team. ICU team is available should the need arise. Of note doing well. Does present with some low right sided facial weakness resulting in inability to raise corner of right mouth. Case discussed with Dr. Pace. Likely due to facial retractions 2/2 procedure, should self resolved in the next week. No imaging necessary at this time. Thank you for allowing us to participate in the care of this patient. (2) Facial weakness: Supervising Physician Co-Signing Physician Notes Patient seen and examined with resident physician. Agree with assessment and plan aside for any additions/exceptions noted. Hemodynamically stable. Will defer pain control and hemodynamics to the vascular surgery team. Suspect that the patient will be discharged home in 1 to 2 days per vascular surgery. ICU team is available should the need arise. Thank you. History of Present Illness Reason for Consultation: s/p right carotid endarterectomy Attending Physician: Bayron Pace MD History of Present Illness 85 yo male PMHx of HTN, HLD, TIA, prostate cancer presented for right carotid endarterectomy 2/2 bilateral ICA stenosis and right sided amaurosis symptoms. About 6 weeks ago he had a transient speck of vision loss in the right eye which only lasted a few moments. He had a second event about 4 weeks ago where he lost the entire top half of his right eye vision and this lasted less than an hour, as he then went to sleep and woke up the next morning and it was fine. He had never had symptoms similar to these in the past, and he has not had any further events.He told his primary care physician who had him scheduled with an lift slab operator who then referred him to cardiology and he underwent a carotid ultrasound. Now s/p right carotid enterectomy from this morning. Procedure was complicated with hematoma so he went back into the OR for evacuation of hematoma and control of bleeding on his right neck. Laying in comfortably in bed. Mild tickle in his throat from intubation otherwise in no pain. Incision site covered with bandages. Bilateral carotid ultrasound performed on 10/25/2021 demonstrates over 70% stenosis of his bilateral ICAs, with an ulcerated plaque in the right. Allergies Allergy/AdvReac Type Severity Reaction Status Date / Time atorvastatin Allergy Intermediate Hives Verified 10/31/21 09:03 oxycodone AdvReac Mild Nausea Verified 10/31/21 09:03 Home Medications Medication Instructions Recorded Confirmed Type fluticasone propionate 50 1 spray INTRANASAL HS 10/05/21 10/31/21 History mcg/actuation nasal spray,suspension (Flonase Allergy Relief) rosuvastatin 20 mg tablet 20 mg PO HS 10/05/21 10/31/21 History amlodipine 2.5 mg tablet 2.5 mg PO HS tab 10/09/21 10/31/21 History aspirin 81 mg tablet,delayed 81 mg PO HS 10/26/21 10/31/21 History release (Adult Aspirin Regimen) clopidogrel 75 mg tablet (Plavix) 75 mg PO HS 10/26/21 10/31/21 History Patient History Medical History Carotid stenosis > 70% B/L ICA stenosis (DENISE with irregular, crater-like plaque formation suggestive of ulcerative plaque) per 10/24/21 carotid doppler Hyperlipidemia Hypertension Metatarsalgia of right foot 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 Perez's note: Hx of recent transient monocular visual loss, pt denies any other stroke-like symptoms Wears hearing aid Surgical History History of bilateral cataract extraction History of foot surgery x3 (right foot) History of nasal polypectomy History of prostate biopsy Malignant History of prostate surgery Status post prostate seed implant History of right hip replacement Left anterior VALENTÍN (05/17/17): SAB at L3/4 (x1 attempt) at [facility]. No issues noted per post-op anesthesia progress note. History of tooth extraction History of total left hip replacement History of total left knee replacement (TKR) Family History Other No family history of adverse response to anesthesia Social History Smoking Status: Light tobacco smoker Cigarettes Per Day: smokes 1 cigar every day (advised policy); Smoking End Date: quit 1972 after smoking 1 pack a day for 20yrs; Second Hand Exposure: No; Do You Dip or Chew Tobacco: No; Tobacco Cessation Education Requested by Patient: No Hx Alcohol Use: Yes ("2 cans a beer a month") Alcohol type: beer Hx Substance Use: No Preferred Language: Georgian Communication Ability: Effective Puppet Developer Required: No Beliefs That Will Affect Care: None Current Living Situation: Spouse Other Information That Helps Us Care for You: No Feels Safe at Home: Yes Safety Concerns: Feels Safe At This Time Assistive Devices: Glasses and Hearing Aid - Bilateral Review of Systems Review of Systems: All systems reviewed & are unremarkable except as noted in HPI & below Physical Exam Physical Exam: Constitutional: in no acute distress, pleasant. Vitals as above. HEENT: No scleral injection or discharge.Moist mucous membranes.Clear oropharynx. Neck: Trachea midline. Bandages over right neck s/p procedure. Lungs: Clear to auscultation bilaterally with good effort. Cardiac: Regular rate and rhythm.No murmurs.1+ bilateral pitting edema. Normal and full extremity pulses. Abdomen: Bowel sounds present. Soft, nontender, and nondistended.No guarding. Skin: No rashes, warm, dry. Neurologic: Mild right sided weakness corner of mouth with inability to symmetrically smile, otherwise facial muscles and cranial nerves grossly intact. Motor strength 5/5. Normal and equal sensation bilaterally. Psych: normal affect, alert and oriented x3 Results & Data Results & Data ([facility]) Vital Signs (Past 12 Hours) Vital Signs Temp Pulse Pulse Resp BP BP Pulse Ox 10/31/21 15:15 37.3 C 73 13 136/74 96 10/31/21 15:05 37.3 C 68 16 136/73 98 10/31/21 14:55 67 13 119/71 99 10/31/21 14:45 66 18 121/62 98 10/31/21 14:38 35.8 C L 67 10 L 116/69 96 10/31/21 13:15 63 18 153/79 H 98 10/31/21 13:10 63 18 140/78 99 10/31/21 13:03 36.0 C L 66 18 139/78 97 10/31/21 09:42 172/89 H 10/31/21 09:06 36.6 C 68 18 174/96 H 99 Laboratory Results Laboratory Results Activ Coag Time Kaolin 155 SECONDS (94-140) H 10/31/21 13:53 Sodium 133 mmol/L (136-145) L 10/31/21 09:07 Potassium 4.0 mmol/L (3.5-5.1) 10/31/21 09:07 Chloride 106 mmol/L (98-107) 10/31/21 09:07 Carbon Dioxide 23 mmol/L (21-32) 10/31/21 09:07 Anion Gap 4 (3-11) 10/31/21 09:07 BUN 18 mg/dl (6-23) 10/31/21 09:07 Creatinine 0.98 mg/dl (0.6-1.4) 10/31/21 09:07 Est Cr Clr Drug Dosing 63.2 ml/min 10/31/21 09:07 Est GFR ( Amer) 80.0 ml/min 10/31/21 09:07 Est GFR (Non-Af Amer) 69.0 ml/min 10/31/21 09:07 BUN/Creatinine Ratio 18.4 (10-20) 10/31/21 09:07 Glucose 103 mg/dl (70-99(Fasting)) H 10/31/21 09:07 Calcium 9.5 mg/dl (8.5-10.1) 10/31/21 09:07 SARS-CoV-2, RNA, NAAT NEGATIVE (NEGATIVE) 10/31/21 08:59 Blood Type A Positive 10/31/21 09:07 Antibody Screen NEGATIVE 10/31/21 09:07 Resident Activity Tracking Resident Involvement: Resident Care Provided Care Provided: Adult Hospital Medicine
[2021-10-31] MEDS: SODIUM CHLORIDE 0.9% 1000ML 1,000 ML IV SCH (16:01)
[2021-10-31] MEDS ORDERED: CHLORASEPTIC 1.4% SOLN 180 ML BTL MT PRN (20:00)
[2021-10-31] MEDS: ceFAZolin 2000MG 2,000 MG/15 ML SYR IV SCH (20:01)
[2021-10-31] MEDS ORDERED: ASPIRIN 81 MG ECTAB PO SCH (21:00)
[2021-10-31] MEDS ORDERED: amLODIPine BESYLATE 5 MG TAB PO SCH (21:00)
[2021-10-31] MEDS ORDERED: FLUTICASONE PROPIONATE NA SPR 16 GM BTL NAE SCH (21:00)
[2021-10-31] MEDS ORDERED: ROSUVASTATIN CALCIUM 20 MG TAB PO SCH (21:00)
[2021-10-31] MEDS ORDERED: CLOPIDOGREL BISULFATE 75 MG TAB PO SCH (21:00)
[2021-10-31] MEDS ORDERED: hydrALAZINE HCL 20 MG/ML VIAL ONE (21:05)
[2021-10-31] MEDS ORDERED: hydrALAZINE HCL 20 MG/ML VIAL IV STA (21:33)
--- NOTE | 2021-10-31 23:21 | Billing Data ---
Date of Service October 31, 2021 Coding Level of Care Code 99956 Initial Inpt Care Lvl 2
[2021-11-01] MEDS: MoRPHine SULFATE 4 MG/ML 1 ML CARP\\VIAL IV PRN ×2 (01:33→04:59)
[2021-11-01] MEDS: SODIUM CHLORIDE 0.9% 1000ML 1,000 ML IV SCH (02:27)
[2021-11-01] MEDS: ceFAZolin 2000MG 2,000 MG/15 ML SYR IV SCH (05:15)
[2021-11-01 05:47] LABS: Basophils # (auto) 0.01 K/uL (0-0.2); Basophils % (auto) 0.1 %; Hematocrit (blood only) 37.2 % (42-52); Immature Granulocytes # (auto) 0.02 K/uL (0.00-0.02); Immature Granulocytes % (auto) 0.2 %; Lymphocytes # (auto) 0.72 K/uL (1.2-3.4); Lymphocytes % (auto) 7.1 %; Mean Corpuscular Hemoglobin 34.8 pg (25-34); Mean Corpuscular Hgb Conc 34.9 g/dL (32-36); Mean Corpuscular Volume 99.5 fL (80-100); Mean Platelet Volume 10.3 fL (7.4-10.4); Monocytes # (auto) 0.67 K/uL (0.11-0.59); Monocytes % (auto) 6.6 %; Neutrophils # (auto) 8.77 K/uL (1.4-6.5); Platelet Count 164 K/uL (130-400); RDW Coefficient of Variation 14.6 % (11.5-14.5); RDW Standard Deviation 52.9 fL (36.4-46.3); Red Blood Count 3.74 M/uL (4.7-6.1); White Blood Count 10.19 K/uL (4.8-10.8)
--- NOTE | 2021-11-01 09:36 | Surgery Progress Note ---
Date of Service November 01, 2021 Assessment & Plan (1) Status post carotid endarterectomy: Plan: Pt overall doing well POD #1 after R CEA and neck exploration/hematoma evacuation. Pt discussed with Dr armstrong, who also saw pt today. Will d/c home today. Will see pt in office in 1-2 weeks for staple removal. Admission and Anticipated Discharge Date Admission Date: October 31, 2021 Subjective 85 yo m POD #1 after R CEA and subsequent R neck exploration and hematoma evac, seen in f/u today. Pt states feeling ok today. Denies MALDONADO, chest pain, SOB, facial droop, difficulty speaking or swallowing, extremity weakness, N/V, other complaints. Review of Systems Review of Systems: All systems reviewed & are unremarkable except as noted in HPI & below Physical Exam Constitutional: WD/WN, vitals as above Neck: trachea midline R neck incision C/D/I with can. +local edema, mild ecchymosis and tenderness. Respiratory: normal respiratory effort, lungs clear to auscultation Cardiovascular: Rate/Rhythm: regular rate and regular rhythm Vessels: posterior tibial pulses present, dorsalis pedis pulses present and radial pulses present; + abnormal peripheral pulses Extremities: normal capillary refill Gastrointestinal (Abdomen): Inspection/Auscultation: abdomen normal to inspection and normal bowel sounds Percussion/Palpation: abdomen soft; abdomen nontender Musculoskeletal: no cyanosis or clubbing, extremities motor strength 5/5 Skin: no rashes, warm and dry Neurologic: moves all extremities and awake; no focal motor deficits and not confused Psychiatric: A+Ox3, euthymic affect Results & Data ([facility]) Vital Signs (Past 12 Hours) Vital Signs Temp Pulse Resp BP Pulse Ox 11/01/21 08:00 36 C L 11/01/21 07:01 72 15 140/59 L 95 11/01/21 07:00 72 16 95 11/01/21 06:00 70 15 128/56 L 92 11/01/21 05:00 72 15 96 11/01/21 04:00 74 13 153/77 H 95 11/01/21 03:00 74 19 157/72 H 93 11/01/21 02:00 82 16 144/70 H 93 11/01/21 01:00 74 19 149/58 H 96 11/01/21 00:00 71 18 167/82 H 96 10/31/21 23:00 75 14 150/73 H 96 10/31/21 22:00 71 17 144/71 H 97
--- NOTE | 2021-11-01 09:38 | Discharge Summary ---
Date of Service November 01, 2021 Admission HPI Per Admitting Provider Name: ROLAND WEST Patient Number: [id number] : 1935 Date of Service: 10/26/2021 Chief Complaint: _New patient consultation for carotid stenosis HPI: _Mr. West is an elderly male who presents to Dr. Armstrong's vascular surgery clinic today as a new patient in consultation for bilateral ICA stenosis and right sided amaurosis symptoms. Patient states that about 6 weeks ago he had a transient speck of vision loss in the right eye which only lasted a few moments. He then states that he had a second event about 4 weeks ago where he lost the entire top half of his right eye vision and this lasted less than an hour, as he then went to sleep and woke up the next morning and it was fine. Patient states he had never had symptoms similar to these in the past, and he has not had any further events. He states that he told his primary care physician who had him scheduled with an promotion producer who then referred him to cardiology and he underwent a carotid ultrasound. Patient denies any other associated symptoms, including confusion, syncope or near syncope, seizure-like activity, facial droop, difficulty speaking or swallowing, unilateral extremity weakness numbness or tingling, headache. He denies other symptoms as well including fever chills nausea vomiting chest pain shortness of breath, abdominal pain, nausea, vomiting, rest pain, claudication, nonhealing wounds or ulcerat ions, other complaints. He denies any history of myocardial infarction or other cardiac problems. Review of systems: Total of 14 systems were reviewed and are negative aside from what is related in his HPI Imaging: Bilateral carotid ultrasound performed on 10/25/2021 demonstrates over 70% stenosis of his bilateral ICAs, with an ulcerated plaque in the right. Current Home Meds: (Last Updated 10/26 11:18) aspirin (Aspir 81 oral delayed release tablet) 81 mg PO Daily clopidogrel (clopidogrel 75 mg oral tablet) 75 mg PO Daily rosuvastatin (rosuvastatin 20 mg oral tablet) 20 mg PO Daily Allergies and Sensitivities: Lipitor(Hives) Past Medical History: Problems: Carotid stenosis Tobacco user prostate cancer Osteoarthritis Hearing loss hypercholesterolemia Carpal tunnel syndrome Hypertension Surgical history: Nasal polypectomy, bilateral total hip arthroplasties, left total knee arthroplasty, foot surgery, prostate biopsy, insertion of radioactive seeds in prostate, dental extractions, cataracts Family history: Positive for hypertension and diabetes Social history: Patient is a prior smoker, having smoked 1 pack a day for 20 years and quit in 1972. Patient drinks about 2 beers per week. He is and lives at home with his . He denies any illicit drug use OBJECTIVE Vitals: Last Updated 10/26/21 11:16 Date Temp BP Location Pulse RR SpO2 Pain 10/26/21 152/72 Right Arm 10/26/21 156/72 Left Arm 73 97 10/26/21 0 Vital Signs are the last 3 documented. No Orthostatic Data Available No Height/Weight Data Available Physical Exam Constitutional: In general patient is a healthy-appearing well-nourished female elderly male no distress. He is alert and oriented without any focal deficits. His head is normocephalic and atraumatic. Neck is supple nontender with midline trachea. He has faint carotid bruits. His heart is regular, his lungs are clear throughout. His abdomen is soft nontender with normoactive bowel sounds in all 4 quadrants. Brachial radial and femoral pulses are +3. DP pulses are +3 in the right +2 in the left. PT pulses are +1 bilaterally. He has brisk capillary refill and no sign of distal ischemia. ASSESSMENT: _ PLAN: _ 1 ) _bilateral ICA stenosis with right-sided amaurosis fugax Patient has severe bilateral ICA stenoses. In looking at the ultrasound, his left ICA does appear to be somewhat more stenosed than his right, however, his right side demonstrates an ulcerative plaque and patient is symptomatic with visual symptoms. Patient was also seen by Dr. Armstrong today. Due to the severity of the stenosis and his symptomatology, we recommended the patient undergo a right carotid endarterectomy procedure. This will be scheduled next week at [facility]. Patient will undergo CTA of the neck prior to his procedure. The procedure, risks, benefits and alternatives were discussed with the patient by myself at Dr. Armstrong's request. Patient expresses understanding and agreement to proceed. He is to call with any other questions. Thank you for letting us participate in the care of this patient. Signature Line Electronic Signature on File CC: Raymundo Johnson MD [address] [place] [id number] * CC: Ashu Ramos MD [facility] [place] [id number] * Electronically Reviewed/Signed by: Kimber Nogueira PA-C Author Signature Dt/Tm:10/26/2021 03:04 PM [facility] [address], [facility] [address] [place] [address] Electronically Reviewed/Signed by: MD Tami Barberignlaura Signature Dt/Tm: 10/30/2021 12:02 PM Senior Technical Manager [facility] [address], [facility] [address] [place] [address] LM Result Type: HVI Outpt Note Date of Service: October 26, 2021 14:50 EDT Authorization Status: Final Author or Import Date: ELIER Nogueira, Kimber on October 26, 2021 15:04 EDT Verified By: MD Sanjeev, Bayron Robb on October 30, 2021 12:02 EDT Encounter info: [id number], [place] [address], Clinic, 10/26/2021 - 10/26/2021 Admission Exam Per Admitting Provider Constitutional: In general patient is a healthy-appearing well-nourished female elderly male no distress. He is alert and oriented without any focal deficits. His head is normocephalic and atraumatic. Neck is supple nontender with midline trachea. He has faint carotid bruits. His heart is regular, his lungs are clear throughout. His abdomen is soft nontender with normoactive bowel sounds in all 4 quadrants. Brachial radial and femoral pulses are +3. DP pulses are +3 in the right +2 in the left. PT pulses are +1 bilaterally. He has brisk capillary refill and no sign of distal ischemia. Principal Diagnosis 1. s/p R CEA 2. s/p R neck exploration and evac of hematoma 3. RICAS with amaurosis Discharge Exam Constitutional WD/WN, vitals as above Neck trachea midline Respiratory normal respiratory effort, lungs clear to auscultation Cardiovascular Rate/Rhythm: regular rate and regular rhythm Vessels: posterior tibial pulses present, dorsalis pedis pulses present and radial pulses present; + abnormal peripheral pulses Extremities: normal capillary refill Gastrointestinal (Abdomen) Inspection/Auscultation: abdomen normal to inspection and normal bowel sounds Percussion/Palpation: abdomen soft; abdomen nontender Musculoskeletal no cyanosis or clubbing, extremities motor strength 5/5 Skin no rashes, warm and dry Neurologic moves all extremities and awake; no focal motor deficits and not confused Psychiatric A+Ox3, euthymic affect Discharge Data Allergies Allergy/AdvReac Type Severity Reaction Status Date / Time atorvastatin Allergy Intermediate Hives Verified 10/31/21 09:03 oxycodone AdvReac Mild Nausea Verified 10/31/21 09:03 Consultations 10/31/21 15:51 Consult Shingle Cutter Routine Procedures Performed Operation Date: 10/31/21 10:25 Actual Procedures p Right Carotid Endarterectomy(Right) - Bayron Armstrong MD Operation Date: 10/31/21 13:15 Actual Procedures p Evacuation of Hematoma, Control of Bleeding Right side of neck(Right) - Bayron Armstrong MD Hospital Course (1) Status post carotid endarterectomy: Pt overall doing well POD #1 after R CEA and neck exploration/hematoma evacuation. Pt discussed with Dr armstrong, who also saw pt today. Will d/c home today. Will see pt in office in 1-2 weeks for staple removal. Total Time Total Time Spent Total Time Spent (In Minutes): 0 Discharge Plan Discharge Items Patient Disposition: Home - Self-Care Reason For Visit: Right Internal Carotid Artery Stenosis with Amauro Discharge Diagnosis: 1. s/p Right Carotid Endarterectomy 2. s/p Right Neck Exploration and Evacuation of Hematoma 3. Right ICA Stenosis with Amaurosis Activity: Per Instructions section Non-emergency contact: Primary Care Provider Call non-emergency contact if: you have any medication questions, your pain is not controlled, your pain is concerning for you, you have a fever, your wound has increased redness and your wound has increased drainage Follow-up/Referrals: Raymundo Plummer MD [Primary Care Provider] - (Follow up with PCP within 2 weeks) Kimber Nogueira PA-C [Physician Sign Designer] - Bayron Armstrong MD [Physician] - (Follow up with Dr Armstrong or Kimber Nogueira PA-C, within 2 weeks) Diet: Heart Healthy Addtl Attending Provider Instructions: SPECIAL CARE INSTRUCTIONS: Medications: * Continue to take Aspirin as directed. Incision Care: * You may shower, but do not rub incision. You may let the warm soapy water run over it. Be sure to dry the incision well after bathing. * Do not shave directly over the incision until it is healed. * DO NOT IMMERSE THE INCISION IN A TUB/POOL/etc. UNTIL HEALED. Restrictions: * Do not drive for at least one week or if you are still taking any narcotic pain medication. * Do not lift anything heavier than a gallon of milk for one week after going home. Possible Complications: * Numbness - It is normal to have some numbness around the incision. Numbness can extend beyond the incision to areas of the neck, ear and face. The numbness is due to bruising of nerves during the surgery and will gradually improve over a period of months. * Hoarseness/Difficulty Speaking and Swallowing - The bruising of nerves in the neck can also cause a hoarse voice, difficulty speaking or swallowing. This may improve over time, HOWEVER, if it continues for more than a few days please contact our office ([phone]). * Excessive Swelling - There will be some swelling immediately after surgery which usually resolves within one week. If you notice that the swelling is getting worse, notify your surgeon ([phone]). * Drainage/Bleeding - If there is any drainage or bleeding, it should be a very small amount (less than a teaspoon per day). If you have excessive bleeding or drainage from the incision, call your surgeon ([phone]) right away. ACTIVATION OF EMERGENCY MEDICAL SYSTEM: Call 911, immediately, if you experience any of the following: Warning Signs and Symptoms of Stroke: * Sudden numbness or weakness of the face, arm or leg, especially on one side of the body * Sudden confusion, trouble speaking or understanding * Sudden trouble seeing in one or both eyes * Sudden trouble walking, dizziness, loss of balance or coordination * Sudden severe headache with no cause Do not delay calling 911 if you experience any warning signs or symptoms of a stroke. Delay in seeking medical attention may affect what treatments can be given to you. Risk Factors for Stroke: You can reduce your chances of stroke by working with your medical provider to adopt a healthy lifestyle. Some specific ways to lower your chance of stroke are: * If you are a smoker, now is the time to stop smoking cigarettes * If you are diabetic, improve the control of your blood sugars * Avoid excessive amounts of alcohol * Control high blood pressure * Lose weight if you are overweight * Be sure to lead an active lifestyle * Eat a healthy diet low in salt, cholesterol and fat You should know about other risk factors for stroke that you are unable to control. These include: * Age 55 years or older * Male gender * Certain racial groups: , or / * Family History of Stroke, Mini stroke or Heart Attack * Sickle Cell Disease You will be receiving a call from the Vascular Surgery Nurse after you are discharged. FOLLOW UP VISIT: It is important for you to keep your follow up appointments with your medical provider. Keep any scheduled doctor appointments. Pending Studies at Discharge: No Stand-Alone Forms: [facility], Smoking Cessation Medications and DC Order Prescriptions: New tramadol 50 mg Tablet 50 mg PO Q4H PRN (Reason: pain) Qty: 30 RF: 0 Continued amlodipine 2.5 mg tablet 2.5 mg PO HS RF: 0 fluticasone propionate [Flonase Allergy Relief] 50 mcg/actuation spray,suspension 1 spray intranasal HS RF: 0 rosuvastatin 20 mg tablet 20 mg PO HS RF: 0 clopidogrel [Plavix] 75 mg tablet 75 mg PO HS RF: 0 aspirin [Adult Aspirin Regimen] 81 mg tablet,delayed release (DR/EC) 81 mg PO HS RF: 0 Discharge Orders: Discharge Order (Routine); Ordered 11/01/21 Ordered By: Kimber Nogueira Admission Data Admit Date/Time: 10/31/21 09:44 Attending Provider: Bayron Armstrong Admit Provider: Bayron Armstrong Primary Care Provider: Raymundo Plummer Other Providers: Navarro Overton ; Obi Wilcox ; Rock Nunes ; Vikas Boland ; Tj Huang ; Noel Cisse ; Danielle Lazo ; Marty Turner
== END 2021-11-01 12:50 | disposition home or self-care (01) | DRG 38 ==
LOC: ASU 08:39 → 1E 09:44